=== PATIENT | female | born 1990 | race Caucasian/White ===

== ENCOUNTER 2018-07-28 18:13 | Emergency (ER) | payer MEDICAID, SELFPAY ==
[2018-07-28 18:16] VITALS: BP 140/70; PULSE 90; RESP 16; TEMP 36.8; O2SAT 98
[2018-07-28] MEDS: Ketorolac 15 MG/ML VIAL IM (18:31)
--- NOTE | 2018-07-28 18:35 | W.ED.GENAD ---
Discharge Plan Disposition Patient Disposition: STILL A PATIENT Condition: Stable Discharge Details Chief Complaint: Urinary Clinical Impression: Left flank pain Reason For Visit: left flank pain Primary Care Provider: Evelyn Duran ED Provider: Dylan Echols Home Meds and New Rx's Prescriptions: Continue etonogestrel-ethinyl estradiol [NuvaRing] 1 EACH ring 1 ea VG q month Qty: 3 RF: 0 ibuprofen 600 MG tablet 600 mg PO Q6H PRN (Reason: Pain) Qty: 16 RF: 0 Discharge Instructions Instructions: Flank Pain (ED) Additional Instructions: if pain continues in 1-2 weeks see your primary care provider If you have severe worsening of pain, fevers, or persistent vomit return to the emergency department Medical Decision Making <Indra Severino MD - Last Filed: 07/28/18 20:23> [facility] Narrative Medical decision making narrative: 28 yo female who denies chronic medical problems though has hx of kidney stones, comes in with intermittent left flank pain for 2 weeks and urinary frequency. Has not had vomit, vaginal bleeding or d/c, no abdominal tenderness on exam. I suspect the patient likely has uti vs pyelo vs kidney stone. Will start with UA as patient appears well and is tolerating PO and pain is well controlled with ibuprofen, after discussion about risks/benefits of CT imaging to eval for kidney stones she declines to have this at this time. No abdominal tenderness to suggest entities such as appendicitis vs sbo or other surgical pathology. No pelvic pain to suggest ovairan torsion UA unremarkable, pt still has mild oblique pain. The patient requests CT despite my feeling she unlikely has acute pathology based on her exam and it is likely oblique or back strain but she still wants to have a CT despite radiation risks being explsined, will order this pt's ct on my read shows no acute findings, she is rseting in bed with no significant pain. Will sign pt out to Dr. echols pending results of the CT. Differential Diagnosis kidney stone, pyelo, muscle strain <Dylan Echols DO - Last Filed: 07/28/18 20:51> [facility] Narrative Medical decision making narrative: Patient CT scan results demonstrates no acute process per virtual radiology. No evidence of urolithiasis in the ureter or bladder. She does have a small punctate lesion in the kidney. Her pain is well controlled. Urine is negative. Vital signs are stable. She will be discharged home. Red flags for which to return have been discussed and the patient understands. I have extensively reviewed the treatment plan and discharge instructions with the patient. I have addressed all patient concerns at this time. The patient was made aware of what symptoms to monitor for that would warrant a return to the emergency department. Discussed the plan with the patient, they demonstrate verbal understanding and agreement with our assessment and plan at this time. HPI - General Adult <Indra Severino MD - Last Filed: 07/28/18 20:23> General Mode of arrival: ambulatory. Date/Time Provider Initiated Documentation: 07/28/18 18:23. Limitations to Documentation: no limitations. Information obtained by: patient. History of Present Illness 28 year old F presents to the emergency department with the chief complaint of left flank pain, described as moderate, with intensity rated at 4. Quality is described as stabbing, and is localized to the back. Patient reports no radiation. Patient started experiencing this week(s) (2) and it has been intermittent. No relieving factors improve symptom(s), No exacerbating factors reported . Patient notes other (urinary frequency). Patient did receive the following treatments prior to arrival, NSAID Related Data Previous Rx's Medication Instructions Recorded ibuprofen 600 mg PO Q6H PRN #16 tablet 10/07/17 Allergies Allergy/AdvReac Type Severity Reaction Status Date / Time No Known Drug Allergies Allergy Unverified 07/28/18 18:20 General Stated Complaint: Urinary HAM: 3 Review of Systems <Indra Severino MD - Last Filed: 07/28/18 20:23> Review of Systems All systems reviewed & are unremarkable except as noted in HPI and below Constitutional Denies chills, Denies fever(s) and Denies weakness Eyes Patient Denies loss of vision ENT Denies change in voice Cardiovascular Denies chest pain and Denies dyspnea Respiratory Denies dyspnea Gastrointestinal Denies abdominal pain, Denies nausea and Denies vomiting Genitourinary Reports urinary frequency and Denies dysuria Musculoskeletal Denies joint swelling Integumentary/Breasts Denies rash Neurologic Denies loss of vision and Denies weakness Psychiatric Denies depression Endocrine Denies cold intolerance and Denies heat intolerance Allergic/Immunologic Reports urticaria Exam <Indra Severino MD - Last Filed: 07/28/18 20:23> Const General: no acute distress Orientation: alert [facility] Head: normal to inspection Ears: external ears normal General nose exam: external nose normal Mouth: moist mucous membranes Eyes General: appearance normal, both eyes and all related structures Neck Neck: normal visual inspection Resp Effort & Inspection: normal respiratory effort and able to speak in complete sentences Cardio Rate: regular rate GI Palpation: soft and nontender Back/Spine/Pelvis Back: CVA tenderness (left cva tenderness) Skin General skin exam: no rashes or lesions noted Neuro General: alert and oriented x3 Extrem General: normal to inspection Psych Mental Status: mental status grossly normal Course <Indra Severino MD - Last Filed: 07/28/18 20:23> Vital Signs Temperature 36.8 C 07/28/18 18:16 Pulse 90 07/28/18 18:16 Respiratory Rate 16 07/28/18 18:16 Blood Pressure 140/70 07/28/18 18:16 Pulse Oximetry 98 07/28/18 18:16 Temperature 36.8 C 07/28/18 18:16 Pulse 90 07/28/18 18:16 Respiratory Rate 16 07/28/18 18:16 Blood Pressure 140/70 07/28/18 18:16 Pulse Oximetry 98 07/28/18 18:16 Sign Out <Indra Severino MD - Last Filed: 07/28/18 20:23> Sign Out Data: Sign Out Comment: follow up on ct results, if no acute findings can be d/c'd Last updated by Indra Severino MD at 07/28/18 20:17
--- NOTE | 2018-07-28 18:39 | ED.GENADUL_ITS ---
Discharge Plan Disposition Patient Disposition: STILL A PATIENT Condition: Stable Discharge Details Chief Complaint: Urinary Clinical Impression: Left flank pain Reason For Visit: left flank pain Primary Care Provider: Evelyn Duran ED Provider: Dylan Echols Home Meds and New Rx's Prescriptions: Continue etonogestrel-ethinyl estradiol [NuvaRing] 1 EACH ring 1 ea VG q month Qty: 3 RF: 0 ibuprofen 600 MG tablet 600 mg PO Q6H PRN (Reason: Pain) Qty: 16 RF: 0 Discharge Instructions Instructions: Flank Pain (ED) Additional Instructions: if pain continues in 1-2 weeks see your primary care provider If you have severe worsening of pain, fevers, or persistent vomit return to the emergency department Medical Decision Making <Indra Severino MD - Last Filed: 07/28/18 20:23> [facility] Narrative Medical decision making narrative: 28 yo female who denies chronic medical problems though has hx of kidney stones, comes in with intermittent left flank pain for 2 weeks and urinary frequency. Has not had vomit, vaginal bleeding or d /c, no abdominal tenderness on exam. I suspect the patient likely has uti vs pyelo vs kidney stone. Will start with UA as patient appears well and is tolerating PO and pain is well controlled with ibuprofen, after discussion about risks/benefits of CT imaging to eval for kidney stones she declines to have this at this time. No abdominal tenderness to suggest entities such as appendicitis vs sbo or other surgical pathology. No pelvic pain to suggest ovairan torsion UA unremarkable, pt still has mild oblique pain. The patient requests CT despite my feeling she unlikely has acute pathology based on her exam and it is likely oblique or back strain but she still wants to have a CT despite radiation risks being explsined, will order this pt's ct on my read shows no acute findings, she is rseting in bed with no significant pain. Will sign pt out to Dr. echols pending results of the CT. Differential Diagnosis kidney stone, pyelo, muscle strain <Dylan Echols DO - Last Filed: 07/28/18 20:51> [facility] Narrative Medical decision making narrative: Patient CT scan results demonstrates no acute process per virtual radiology. No evidence of urolithiasis in the ureter or bladder. She does have a small punctate lesion in the kidney. Her pain is well controlled. Urine is negative. Vital signs are stable. She will be discharged home. Red flags for which to return have been discussed and the patient understands. I have extensively reviewed the treatment plan and discharge instructions with the patient. I have addressed all patient concerns at this time. The patient was made aware of what symptoms to monitor for that would warrant a return to the emergency department. Discussed the plan with the patient, they demonstrate verbal understanding and agreement with our assessment and plan at this time. HPI - General Adult <Indra Severino MD - Last Filed: 07/28/18 20:23> General Mode of arrival: ambulatory . Date/Time Provider Initiated Documentation: 07/28/18 18:23 . Limitations to Documentation: no limitations . Information obtained by: patient . History of Present Illness 28 year old F presents to the emergency department with the chief complaint of left flank pain, described as moderate, with intensity rated at 4. Quality is described as stabbing, and is localized to the back. Patient reports no radiation. Patient started experiencing this week(s) (2) and it has been intermittent. No relieving factors improve symptom(s), No exacerbating factors reported . Patient notes other (urinary frequency). Patient did receive the following treatments prior to arrival, NSAID Related Data Previous Rx's Medication Instructions Recorded ibuprofen 600 mg PO Q6H PRN #16 tablet 10/07/17 Allergies Allergy/AdvReac Type Severity Reaction Status Date / Time No Known Drug Allergies Allergy Unverified 07/28/18 18:20 General Stated Complaint: Urinary HAM: 3 Review of Systems <Indra Severino MD - Last Filed: 07/28/18 20:23> Review of Systems All systems reviewed & are unremarkable except as noted in HPI and below Constitutional Denies chills, Denies fever(s) and Denies weakness Eyes Patient Denies loss of vision ENT Denies change in voice Cardiovascular Denies chest pain and Denies dyspnea Respiratory Denies dyspnea Gastrointestinal Denies abdominal pain, Denies nausea and Denies vomiting Genitourinary Reports urinary frequency and Denies dysuria Musculoskeletal Denies joint swelling Integumentary/Breasts Denies rash Neurologic Denies loss of vision and Denies weakness Psychiatric Denies depression Endocrine Denies cold intolerance and Denies heat intolerance Allergic/Immunologic Reports urticaria Exam <Indra Severino MD - Last Filed: 07/28/18 20:23> Const General: no acute distress Orientation: alert [facility] Head: normal to inspection Ears: external ears normal General nose exam: external nose normal Mouth: moist mucous membranes Eyes General: appearance normal, both eyes and all related structures Neck Neck: normal visual inspection Resp Effort & Inspection: normal respiratory effort and able to speak in complete sentences Cardio Rate: regular rate GI Palpation: soft and nontender Back/Spine/Pelvis Back: CVA tenderness (left cva tenderness) Skin General skin exam: no rashes or lesions noted Neuro General: alert and oriented x3 Extrem General: normal to inspection Psych Mental Status: mental status grossly normal Course <Indra Severino MD - Last Filed: 07/28/18 20:23> Vital Signs Temperature 36.8 C 07/28/18 18:16 Pulse 90 07/28/18 18:16 Respiratory Rate 16 07/28/18 18:16 Blood Pressure 140/70 07/28/18 18:16 Pulse Oximetry 98 07/28/18 18:16 Temperature 36.8 C 07/28/18 18:16 Pulse 90 07/28/18 18:16 Respiratory Rate 16 07/28/18 18:16 Blood Pressure 140/70 07/28/18 18:16 Pulse Oximetry 98 07/28/18 18:16 Sign Out <Indra Severino MD - Last Filed: 07/28/18 20:23> Sign Out Data: Sign Out Comment: follow up on ct results, if no acute findings can be d/c'd Last updated by Indra Severino MD at 07/28/18 20:17
[2018-07-28 19:08] LABS: Bilirubin Negative (Negative); Blood Negative (Negative); Clarity Clear; Glucose Negative (Negative); Ketones Negative (Negative); Leukocyte Esterase Negative (Negative); Nitrite Negative (Negative); Specific Gravity >= 1.030 (1.005-1.025); Urobilinogen 0.2 EU/dL (Up TO 0.2); pH 5.5 (5-8)
--- NOTE | 2018-07-28 19:37 | DI.CT_ITS ---
SYMPTOM/DIAGNOSIS: LEFT FLANK PAIN RENAL COLIC CT: Comparison is made with 07 Oct 2017. A tiny nonobstructing stone is seen in the mid to lower left kidney, unchanged from the previous exam. There is no evidence of hydronephrosis of either kidney The bladder, uterus and ovaries are unremarkable. The visualized portions of the liver and spleen appear normal. The gallbladder, pancreas, adrenals and bowel are unremarkable. The appendix appears normal. No bony abnormalities are seen. IMPRESSION: Tiny nonobstructing stone in the mid to lower pole of the left kidney, unchanged.
--- NOTE | 2018-07-28 20:28 | DI.VRAD_ITS ---
EXAM: CT Abdomen and Pelvis Without Intravenous Contrast CLINICAL HISTORY: 28 years old, female; Pain; Abdominal pain; Flank; Left; Patient HX: Left flank pain TECHNIQUE: Axial computed tomography images of the abdomen and pelvis without intravenous contrast. Coronal and sagittal reformatted images were created and reviewed. COMPARISON: CT - RENAL COLIC WO CONTRAST 10/07/2017 9:30 PM FINDINGS: Lung bases: Minimal dependent subsegmental atelectasis. ABDOMEN: Liver: The visualized liver is unremarkable. Gallbladder and bile ducts: No focal pathology. No calcified stones. No ductal dilation. Pancreas: No focal pathology. No ductal dilation. Spleen: Visualized portions of the spleen are unremarkable. Adrenals: No focal pathology. No mass. Kidneys and ureters: Punctate nonobstructive left nephrolithiasis. No right nephrolithiasis or hydronephrosis. Stomach and bowel: Several tiny transverse colonic diverticulum. No focal pathology in the remainder of the colon. No focal pathology in the small bowel. No obstruction. No mucosal thickening. PELVIS: Appendix: No findings to suggest acute appendicitis. Bladder: No focal pathology. No stones. Reproductive: Normal CT appearance of the uterus. ABDOMEN and PELVIS: Intraperitoneal space: No free air. No significant fluid collection. Bones/joints: No acute fracture. No dislocation. Soft tissues: Unremarkable. Vasculature: Subcentimeter rounded calcification in the left pelvis most consistent with a phlebolith. No abdominal aortic aneurysm. Lymph nodes: No enlarged lymph nodes. Tubes, lines and devices: Rounded structure in the vagina most likely a contraceptive device. IMPRESSION: 1. No acute findings. 2. Punctate nonobstructive left nephrolithiasis. 3. Minor incidental findings as described. Dictated and Authenticated by: Asya Barton MD. Ordering:MICHELLE HAJI MD
[2018-07-28 20:34] VITALS: BP 126/73; PULSE 61; RESP 16; O2SAT 99
== END 2018-07-28 20:43 | disposition still patient (30) ==
PROVIDERS: Emergency Medicine; Emergency Provider Student in an Organized Health Care Education/Training Program; PCP Nurse Practitioner Family
DX: R10.12 Left upper quadrant pain (principal); Z87.442 Personal history of urinary calculi
CPT/HCPCS: 81025; 96372; 99284; 74176; 81003; 99285; J1885

== ENCOUNTER 2018-11-25 11:01 | Outpatient (REF) | payer MEDICAID, SELFPAY ==
--- NOTE | 2018-11-25 10:00 | PAPFT_PTH ---
PATIENT: More Gu LOC: [facility] U#:[id number] AGE/SX: 28/F ROOM: RE11/25/[address]: DOMENIC Prieto : 1990 BED: DIS: 11/25/2018 SPEC #: [id number] RECD: 11/25/18 13:05 STATUS: DENISE RECorrina #: [id number] LUCERO: 11/25/18 10:[address]: Aide Evans DEPT: [facility] Cytology RECD BY: Tila Manriquez ENTERED: 11/25/18 13:06 SP TYPE: PAPFT OTHR DR: Evelyn Duran Tissues: 1 - CX/ENDOCX FOR PAP SMEARS Procedures: PAP THIN PREP/UVM Screening Comments: [id number]
== END 2018-11-25 11:21 ==
LOC: LBN 11:01
PROVIDERS: PCP Nurse Practitioner Family; Visit Provider Nurse Practitioner Family
DX: Z12.4 Encounter for screening for malignant neoplasm of cervix (principal)
CPT/HCPCS: 88142

== ENCOUNTER 2019-01-20 13:44 | Emergency (ER) | payer MEDICAID, SELFPAY ==
[2019-01-20 14:03] VITALS: BP 136/80; PULSE 102; RESP 16; TEMP 36.6; O2SAT 97
--- NOTE | 2019-01-20 15:27 | W.ED.GENAD ---
Discharge Plan Disposition Patient Disposition: HOME Condition: Stable Discharge Details Chief Complaint: RespSymp Clinical Impression: Influenza Primary Care Provider: None,None ED Provider: Obie Noriega Home Meds and New Rx's Prescriptions: New benzonatate 200 mg capsule 200 mg PO TID PRN (Reason: cough) Qty: 30 RF: 0 Continued NuvaRing 0.12-0.015 mg/24 hr ring 1 vag ring VG q month Qty: 3 RF: 3 ibuprofen 600 MG tablet 600 mg PO Q6H PRN (Reason: Pain) Qty: 16 RF: 0 Discharge Instructions Instructions: Influenza (ED) Additional Instructions: Please stay well-hydrated and get plenty of rest during illness. Feel free to follow-up with your primary care provider if not improving over the next week. You may take [id number] cough and cold medication as directed on packaging. Return to the emergency department for any significant worsening of symptoms or further concerns she may have Stand Alone Forms: Work Release Referrals: Primary Care Provider [Outside] (As needed for reassessment) Discharge Data Discharge Date/Time-TO BE ENTERED AT DEPARTURE: 01/20/19 15:32 Medical Decision Making Patient presenting to the emergency department for flulike symptoms. Patient states that this started greater than 48 hours ago. Patient has taken some [id number] medications with mild to moderate relief of symptoms. Patient is afebrile nontoxic in appearance with mild tachycardia on vital signs but none auscultated on cardiac exam. Exam does show some mild posterior pharynx erythema and nasal congestion otherwise unremarkable symptoms. Given symptoms greater than 48 hours patient was offered influenza testing which she declined at this time. Patient was checked for due to irregular menses and was negative. There were no signs of pneumonia, meningitis, or life-threatening illness. Patient was diagnosed with presumed influenza. Patient was encouraged to continue to stay well-hydrated and given Tessalon Perle for cough suppressant. Return precautions discussed. After discussion of diagnosis and plan of care patient has no further needs, questions, or concerns and states clear understanding to return to the emergency department for any worsening symptoms. HPI General Mode of arrival: ambulatory. Date/Time Provider Initiated Documentation: 01/20/19 14:00. Limitations to Documentation: no limitations. Information obtained by: patient and RN notes reviewed. History of Present Illness 28 year old F presents to the emergency department with the chief complaint of flu like symptoms, described as moderate, with intensity rated at 7. Quality is described as aching, and is localized to the chest (tightness). Patient started experiencing this day(s) (2) and it has been constant. No relieving factors improve symptom(s), No exacerbating factors reported . Patient did receive the following treatments prior to arrival, NSAID and other (OTC cold meds) Related Data Home Medications Medication Instructions Recorded Confirmed ibuprofen 600 mg PO Q6H PRN #16 tab 10/07/17 01/20/19 etonogestrel-ethinyl estradiol 1 vag ring VG q month #3 each 11/25/18 01/20/19 0.12 mg -0.015 mg/24 hr vaginal ring benzonatate 200 mg PO TID PRN #30 cap 01/20/19 Previous Rx's Medication Instructions Recorded ibuprofen 600 mg PO Q6H PRN #16 tab 10/07/17 etonogestrel-ethinyl estradiol 1 vag ring VG q month #3 each 11/25/18 0.12 mg -0.015 mg/24 hr vaginal ring benzonatate 200 mg PO TID PRN #30 cap 01/20/19 Allergies Allergy/AdvReac Type Severity Reaction Status Date / Time No Known Drug Allergies Allergy Verified 01/20/19 14:07 General Stated Complaint: RespSymp HAM: 3 Review of Systems Constitutional Reports body ache(s), Reports chills, Reports fever(s), Reports headache(s) and Reports malaise Eyes Denies eye discharge ENT Reports as per HPI, Denies ear discharge, Denies otalgia, Reports headache(s), Reports nasal congestion, Reports nasal discharge, Denies neck pain, Reports sore throat and Denies throat swelling Cardiovascular Denies chest pain and Denies dyspnea Respiratory Reports cough and Denies dyspnea Musculoskeletal Denies joint swelling and Denies neck pain Integumentary/Breasts Denies rash Neurologic Reports headache(s) Allergic/Immunologic Denies throat swelling [facility] Medical History Contraception (Acute) Depression with anxiety (Acute) Smoker (Acute 05/28/14) Irregular bleeding (Resolved) Kidney stones (Resolved 11/04/15) Surgical History Ureteroscopy, EHL, or Laser Lithotripsy stent placement left kidney and ureter Family History Mother Alcohol abuse Father Substance abuse Alcohol abuse Brother No problems noted. Brother No problems noted. Brother No problems noted. Grandfather No problems noted. Grandfather No problems noted. Grandmother Diabetes Alcohol abuse Essential hypertension Heart disease Hyperlipidemia Mental disorder Myocardial infarction Grandmother Kidney stones Cholestasis Son No problems noted. 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 Smoking and Tabacco status: Current every day Female Reproductive History Menstrual control method: vaginal ring History History 2 Para 2 Hx # Term Pregnancies Multiple births Hx # Pregnancies Ectopic pregnancies AB induced Hx Number of Living Children AB spontaneous Exam Const General: cooperative, comfortable, no acute distress and not ill appearing Orientation: alert and awake HENMT Head: normal to inspection, normocephalic and atraumatic Ears: hearing grossly normal bilaterally and TM's normal bilaterally General nose exam: external nose normal and other (nasal congestion heard) Face and sinus: normal facial exam, sinuses nontender and no erythema Mouth: oral mucosae normal, no drooling, no muffled voice and no trismus Throat: tonsils normal, uvula midline and posterior oropharynx abnormal erythema (mild) Neck Neck: normal visual inspection, full ROM, no lymphadenopathy, no meningeal signs, trachea midline and supple Resp Effort & Inspection: normal respiratory effort, able to speak in complete sentences and cough Quality of cough: dry Auscultation: clear to auscultation bilaterally Cardio Rate: regular rate Rhythm: regular rhythm Heart Sounds: S1 normal, S2 normal, normal S1 and S2, no click, no gallops, no murmurs and no rubs Skin General skin exam: no rashes or lesions noted and dry skin (warm) Course Vital Signs Temperature 36.6 C 01/20/19 14:03 Pulse 102 H 01/20/19 14:03 Respiratory Rate 16 01/20/19 14:03 Blood Pressure 136/80 01/20/19 14:03 Pulse Oximetry 97 01/20/19 14:03 Temperature 36.6 C 01/20/19 14:03 Temperature Source Skin 01/20/19 14:03 Pulse 102 H 01/20/19 14:03 Respiratory Rate 16 01/20/19 14:03 Respiratory Effort Non-Labored 01/20/19 14:23 Respiratory Depth Normal 01/20/19 14:23 Blood Pressure 136/80 01/20/19 14:03 Blood Pressure Position Sitting 01/20/19 14:03 Pulse Oximetry 97 01/20/19 14:03 Oxygen Delivery Method Room Air 01/20/19 14:03 Oxygen Flow Rate 0 01/20/19 14:03 Pain Level 7 01/20/19 14:03 Lab/Test Results Lab/Test Results: POC- Test(urine) Negative
== END 2019-01-20 15:32 | disposition home or self-care (01) ==
PROVIDERS: Emergency Provider Nurse Practitioner Family
DX: J10.1 Influenza due to other identified influenza virus with other respiratory manifestations (principal); F17.210 Nicotine dependence, cigarettes, uncomplicated
CPT/HCPCS: 99283

== ENCOUNTER 2019-03-14 21:50 | Emergency (ER) | payer MEDICAID, SELFPAY ==
--- NOTE | 2019-03-14 21:55 | W.ED.GENAD ---
Discharge Plan Disposition Patient Disposition: HOME Condition: Stable Discharge Details Chief Complaint: RespSymp Clinical Impression: Laryngitis Primary Care Provider: Pilar Weeks ED Provider: Indra Severino Home Meds and New Rx's Prescriptions: No Action NuvaRing 0.12-0.015 mg/24 hr ring 1 vag ring VG q month Qty: 3 RF: 3 ibuprofen 600 MG tablet 600 mg PO Q6H PRN (Reason: Pain) Qty: 16 RF: 0 benzonatate 200 mg capsule 200 mg PO TID PRN (Reason: cough) Qty: 30 RF: 0 Discharge Instructions Instructions: Laryngitis (ED) Additional Instructions: Rest your voice: Do not shout or scream if you get laryngitis often. This will help prevent swelling and irritation of your larynx.Avoid irritants and harmful substances: Do not breathe in chemicals or allergens, such as pollen. Alcohol and tobacco can also irritate your larynx.Avoid foods and liquids that can cause acid reflux: These may include carbonated drinks, spicy foods and sauces, citrus fruit, peppermint, and chocolate. if symptoms continue next week see your primary care provider if you have severe worsening pain or inability to swallow liquids or difficulty breathing return to the emergency department Medical Decision Making Pt has had a hoarse voice for 3 days and dry cough. No fevers, difficulty swallowing or difficulty breathing. On exam she is in no distress laughing with a friend. Does have a hoarse voice with mild posterior pharynx erythema, midline uvula, no pain over hyoid or restricted neck movements, no findings to suggest rpa, [employer], epiglotitis. Suspect laryngitis but will eval for strep, if negative will have her do supportive therapy and f/u with pcp with return precautions Differential Diagnosis pharyngitis, laryngitis HPI General Mode of arrival: ambulatory. Date/Time Provider Initiated Documentation: 03/14/19 21:54. Limitations to Documentation: no limitations. Information obtained by: patient. History of Present Illness 29 year old F presents to the emergency department with the chief complaint of hoarse voice, described as moderate, Quality is described as other (scratchy), and is localized to the mouth. Patient started experiencing this day(s) (3) and it has been constant. No relieving factors improve symptom(s), No exacerbating factors reported . Patient notes no other symptoms.. Patient did receive the following treatments prior to arrival, none Related Data Home Medications Medication Instructions Recorded Confirmed ibuprofen 600 mg PO Q6H PRN #16 tab 10/07/17 03/14/19 etonogestrel-ethinyl estradiol 1 vag ring VG q month #3 each 11/25/18 03/14/19 0.12 mg -0.015 mg/24 hr vaginal ring benzonatate 200 mg PO TID PRN #30 cap 01/20/19 03/14/19 Previous Rx's Medication Instructions Recorded ibuprofen 600 mg PO Q6H PRN #16 tab 10/07/17 etonogestrel-ethinyl estradiol 1 vag ring VG q month #3 each 11/25/18 0.12 mg -0.015 mg/24 hr vaginal ring benzonatate 200 mg PO TID PRN #30 cap 01/20/19 Allergies Allergy/AdvReac Type Severity Reaction Status Date / Time No Known Drug Allergies Allergy Verified 03/14/19 22:00 General HAM: 3 Review of Systems Review of Systems All systems reviewed & are unremarkable except as noted in HPI and below Constitutional Denies chills, Denies fever(s) and Denies weakness Cardiovascular Denies chest pain and Denies dyspnea Respiratory Denies dyspnea Gastrointestinal Denies abdominal pain, Denies nausea and Denies vomiting Genitourinary Denies dysuria Musculoskeletal Denies joint swelling Integumentary/Breasts Denies rash Neurologic Denies weakness [facility] Medical History Contraception (Acute) Depression with anxiety (Acute) Smoker (Acute 05/28/14) Irregular bleeding (Resolved) Kidney stones (Resolved 11/04/15) Surgical History Ureteroscopy, EHL, or Laser Lithotripsy stent placement left kidney and ureter Family History Mother Alcohol abuse Father Substance abuse Alcohol abuse Brother No problems noted. Brother No problems noted. Brother No problems noted. Grandfather No problems noted. Grandfather No problems noted. Grandmother Diabetes Alcohol abuse Essential hypertension Heart disease Hyperlipidemia Mental disorder Myocardial infarction Grandmother Kidney stones Cholestasis Son No problems noted. 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 Do you feel safe at home: Yes Do you feel safe in your relationship?: Yes Female Reproductive History Menstrual control method: vaginal ring History History 2 Para 2 Hx # Term Pregnancies Multiple births Hx # Pregnancies Ectopic pregnancies AB induced Hx Number of Living Children AB spontaneous Exam Const General: no acute distress Orientation: alert HENMT Head: normal to inspection Ears: external ears normal General nose exam: external nose normal Mouth: moist mucous membranes Eyes General: appearance normal, both eyes and all related structures Neck Neck: normal visual inspection Resp Effort & Inspection: normal respiratory effort and able to speak in complete sentences Cardio Rate: regular rate Skin General skin exam: no rashes or lesions noted Neuro General: alert and oriented x3 Extrem General: normal to inspection Psych Mental Status: mental status grossly normal
[2019-03-14 21:56] VITALS: BP 125/65; PULSE 89; RESP 20; TEMP 37.1; O2SAT 99
--- NOTE | 2019-03-14 22:08 | ED.GENADUL_ITS ---
Discharge Plan Disposition Patient Disposition: HOME Condition: Stable Discharge Details Chief Complaint: RespSymp Clinical Impression: Laryngitis Primary Care Provider: Pilar Weeks ED Provider: Indra Severino Home Meds and New Rx's Prescriptions: No Action NuvaRing 0.12-0.015 mg/24 hr ring 1 vag ring VG q month Qty: 3 RF: 3 ibuprofen 600 MG tablet 600 mg PO Q6H PRN (Reason: Pain) Qty: 16 RF: 0 benzonatate 200 mg capsule 200 mg PO TID PRN (Reason: cough) Qty: 30 RF: 0 Discharge Instructions Instructions: Laryngitis (ED) Additional Instructions: Rest your voice: Do not shout or scream if you get laryngitis often. This will help prevent swelling and irritation of your larynx.Avoid irritants and harmful substances: Do not breathe in chemicals or allergens, such as pollen. Alcohol and tobacco can also irritate your larynx.Avoid foods and liquids that can cause acid reflux: These may include carbonated drinks, spicy foods and sauces, citrus fruit, peppermint, and chocolate. if symptoms continue next week see your primary care provider if you have severe worsening pain or inability to swallow liquids or difficulty breathing return to the emergency department Medical Decision Making Pt has had a hoarse voice for 3 days and dry cough. No fevers, difficulty swallowing or difficulty breathing. On exam she is in no distress laughing with a friend. Does have a hoarse voice with mild posterior pharynx erythema, midline uvula, no pain over hyoid or restricted neck movements, no findings to suggest rpa, vessel captain, epiglotitis. Suspect laryngitis but will eval for strep, if negative will have her do supportive therapy and f/u with pcp with return precautions Differential Diagnosis pharyngitis, laryngitis HPI General Mode of arrival: ambulatory . Date/Time Provider Initiated Documentation: 03/14/19 21:54 . Limitations to Documentation: no limitations . Information obtained by: patient . History of Present Illness 29 year old F presents to the emergency department with the chief complaint of hoarse voice, described as moderate, Quality is described as other (scratchy), and is localized to the mouth. Patient started experiencing this day(s) (3) and it has been constant. No relieving factors improve symptom(s), No exacerbating factors reported . Patient notes no other symptoms.. Patient did receive the following treatments prior to arrival, none Related Data Home Medications Medication Instructions Recorded Confirmed ibuprofen 600 mg PO Q6H PRN #16 tab 10/07/17 03/14/19 etonogestrel-ethinyl estradiol 1 vag ring VG q month #3 each 11/25/18 03/14/19 0.12 mg -0.015 mg/24 hr vaginal ring benzonatate 200 mg PO TID PRN #30 cap 01/20/19 03/14/19 Previous Rx's Medication Instructions Recorded ibuprofen 600 mg PO Q6H PRN #16 tab 10/07/17 etonogestrel-ethinyl estradiol 1 vag ring VG q month #3 each 11/25/18 0.12 mg -0.015 mg/24 hr vaginal ring benzonatate 200 mg PO TID PRN #30 cap 01/20/19 Allergies Allergy/AdvReac Type Severity Reaction Status Date / Time No Known Drug Allergies Allergy Verified 03/14/19 22:00 General HAM: 3 Review of Systems Review of Systems All systems reviewed & are unremarkable except as noted in HPI and below Constitutional Denies chills, Denies fever(s) and Denies weakness Cardiovascular Denies chest pain and Denies dyspnea Respiratory Denies dyspnea Gastrointestinal Denies abdominal pain, Denies nausea and Denies vomiting Genitourinary Denies dysuria Musculoskeletal Denies joint swelling Integumentary/Breasts Denies rash Neurologic Denies weakness [facility] Medical History Contraception (Acute) Depression with anxiety (Acute) Smoker (Acute 05/28/14) Irregular bleeding (Resolved) Kidney stones (Resolved 11/04/15) Surgical History Ureteroscopy, EHL, or Laser Lithotripsy stent placement left kidney and ureter Family History Mother Alcohol abuse Father Substance abuse Alcohol abuse Brother No problems noted. Brother No problems noted. Brother No problems noted. Grandfather No problems noted. Grandfather No problems noted. Grandmother Diabetes Alcohol abuse Essential hypertension Heart disease Hyperlipidemia Mental disorder Myocardial infarction Grandmother Kidney stones Cholestasis Son No problems noted. 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 Do you feel safe at home: Yes Do you feel safe in your relationship?: Yes Female Reproductive History Menstrual control method: vaginal ring History History 2 Para 2 Hx # Term Pregnancies Multiple births Hx # Pregnancies Ectopic pregnancies AB induced Hx Number of Living Children AB spontaneous Exam Const General: no acute distress Orientation: alert HENMT Head: normal to inspection Ears: external ears normal General nose exam: external nose normal Mouth: moist mucous membranes Eyes General: appearance normal, both eyes and all related structures Neck Neck: normal visual inspection Resp Effort & Inspection: normal respiratory effort and able to speak in complete sentences Cardio Rate: regular rate Skin General skin exam: no rashes or lesions noted Neuro General: alert and oriented x3 Extrem General: normal to inspection Psych Mental Status: mental status grossly normal
[2019-03-14 22:31] VITALS: BP 125/65; PULSE 80; RESP 18; O2SAT 99
== END 2019-03-14 22:34 | disposition home or self-care (01) ==
PROVIDERS: Emergency Provider Emergency Medicine; PCP Family Medicine
DX: J04.0 Acute laryngitis (principal)
CPT/HCPCS: 87880; 99282; 87081

== ENCOUNTER 2019-05-22 11:26 | Emergency (ER) | payer MEDICAID, SELFPAY ==
[2019-05-22 11:40] VITALS: BP 122/67; PULSE 72; RESP 16; TEMP 36.5; O2SAT 100
--- NOTE | 2019-05-22 13:00 | W.ED.GENAD ---
Discharge Plan Disposition Patient Disposition: HOME Condition: Good Discharge Details Chief Complaint: EyeProblem Clinical Impression: Conjunctivitis Primary Care Provider: Pilar Weeks ED Provider: Lily Stanton Home Meds and New Rx's Prescriptions: Continued NuvaRing 0.12-0.015 mg/24 hr ring 1 vag ring VG q month Qty: 3 RF: 3 Discharge Instructions Instructions: Conjunctivitis (ED) Additional Instructions: At this point, your symptoms are most likely allergic in nature. Please try Clear Eyes redness relief, take as directed on the bottle. If you develop pain, change in your vision, redness, discharge or other new/worsening symptoms please seek care urgently once again. Please follow-up with primary care next week if not improving Referrals: Pilar Weeks MD [Primary Care Provider] - Discharge Data Discharge Date/Time-TO BE ENTERED AT DEPARTURE: 05/22/19 13:14 Medical Decision Making Patient a 21-year-old female presents today with chief complaint of right eye irritation. She reports she went camping last night and woke this morning with swelling under the right lid. Notes the eye to be slightly injected very itchy. She denies any pain, change in vision, discharge, fever/chills. No sensation of foreign body, no trauma to the eye. On exam, patient is slightly teary to the side. Mild injection of the conjunctiva. She does have some lower lid swelling but no erythema warmth or tenderness to palpation. No evidence of abscess or periorbital cellulitis. Patient I discussed the differential diagnoses, at this time, I feel that this is likely allergic in nature. She does report that she has a large number of seasonal allergies. We did discuss [id number] medications that may help with symptomatic management. She is given strict return precautions. Advise follow-up with primary care this week if not improving. All of her questions and concerns were addressed and she is in agreement this plan. HPI General Mode of arrival: ambulatory. Date/Time Provider Initiated Documentation: 05/22/19 12:58. Limitations to Documentation: no limitations. Information obtained by: patient and RN notes reviewed. History of Present Illness 29 year old F presents to the emergency department with the chief complaint of right eye irritation, described as mild, with intensity rated at 2. Quality is described as other (itching), Patient reports no radiation. Patient started experiencing this hour(s) and it has been constant. No relieving factors improve symptom(s), No exacerbating factors reported . Patient notes no other symptoms.. Patient did receive the following treatments prior to arrival, none Related Data Home Medications Medication Instructions Recorded Confirmed etonogestrel-ethinyl estradiol 1 vag ring VG q month #3 each 11/25/18 05/22/19 0.12 mg -0.015 mg/24 hr vaginal ring Previous Rx's Medication Instructions Recorded etonogestrel-ethinyl estradiol 1 vag ring VG q month #3 each 11/25/18 0.12 mg -0.015 mg/24 hr vaginal ring Allergies Allergy/AdvReac Type Severity Reaction Status Date / Time No Known Drug Allergies Allergy Verified 05/22/19 11:45 General Stated Complaint: EyeProblem HAM: 4 Review of Systems Constitutional Reports as per HPI, Denies chills, Denies fever(s), Denies headache(s), Denies lethargy and Denies poor appetite Eyes Reports as per HPI, Denies blurry vision, Denies change in vision, Reports eye discharge (tearing), Reports irritation, Reports itchy eyes and Denies eye pain ENT Reports as per HPI and Denies headache(s) Cardiovascular Reports as per HPI, Denies chest pain and Denies dyspnea Respiratory Reports as per HPI and Denies dyspnea Gastrointestinal Reports as per HPI, Denies abdominal pain, Denies change in bowel habits, Denies nausea and Denies vomiting Integumentary/Breasts Reports as per HPI and Denies rash Neurologic Reports as per HPI and Denies headache(s) Allergic/Immunologic Reports itchy eyes COUNT INCLUDES [facility] Medical History Contraception (Acute) Depression with anxiety (Acute) Smoker (Acute 05/28/14) Irregular bleeding (Resolved) Kidney stones (Resolved 11/04/15) Surgical History Ureteroscopy, EHL, or Laser Lithotripsy stent placement left kidney and ureter Social History Smoking/Tobacco Use Status: Former Tobacco Use Alcohol Intake: never Drug use: Never 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 Do you feel safe at home: Yes Do you feel safe in your relationship?: Yes Female Reproductive History Menstrual control method: vaginal ring History History 2 Para 2 Hx # Term Pregnancies Multiple births Hx # Pregnancies Ectopic pregnancies AB induced Hx Number of Living Children AB spontaneous Exam Const General: cooperative, healthy appearing, comfortable, no acute distress, well developed and well groomed Nutritional Appearance: average body habitus and well nourished Orientation: alert and awake [facility] Head: normal to inspection, normocephalic and atraumatic Ears: hearing grossly normal bilaterally, external ears normal and TM's normal bilaterally General nose exam: external nose normal and nares normal Face and sinus: normal facial exam, sinuses nontender and face symmetric Mouth: oral mucosae normal, lip normal, tongue normal, oropharynx normal and moist mucous membranes Teeth and gingiva: dentition normal Throat: posterior oropharynx normal, tonsils normal and uvula midline Eyes Alignment and Position: alignment normal and position normal Periorbital: periorbital findings normal Eyelids: eyelids normal Conjunctivae: conjunctival abnormality left conjunctival injection Pupils: PERRL and normal by confrontation Direct ophthalmoscopy: normal light reflex Neck Neck: normal visual inspection, full ROM, no lymphadenopathy and no meningeal signs Resp Effort & Inspection: normal respiratory effort, able to speak in complete sentences and no respiratory distress Auscultation: clear to auscultation bilaterally, no rales, no rhonchi and no wheezes Cardio Rate: regular rate Rhythm: regular rhythm Heart Sounds: S1 normal and S2 normal Skin General skin exam: no rashes or lesions noted Neuro General: alert and awake Cognition: normal cognition Speech: speech normal Gait: normal gait Psych Appearance: grossly normal and well kempt Mental Status: mental status grossly normal Speech and Movement: speech and movement normal Course Vital Signs Temperature 36.5 C 05/22/19 11:40 Pulse 72 05/22/19 11:40 Respiratory Rate 16 05/22/19 11:40 Blood Pressure 122/67 05/22/19 11:40 Pulse Oximetry 100 05/22/19 11:40 Temperature 36.5 C 05/22/19 11:40 Temperature Source Temporal Artery Scan 05/22/19 11:40 Pulse 72 05/22/19 11:40 Respiratory Rate 16 05/22/19 11:40 Respiratory Effort Non-Labored 05/22/19 11:44 Blood Pressure 122/67 05/22/19 11:40 Blood Pressure Position Sitting 05/22/19 11:40 Pulse Oximetry 100 05/22/19 11:40 Oxygen Delivery Method Room Air 05/22/19 11:40 Oxygen Flow Rate 0 05/22/19 11:40 Pain Level 2 05/22/19 11:40
--- NOTE | 2019-05-22 13:10 | ED.GENADUL_ITS ---
Discharge Plan Disposition Patient Disposition: HOME Condition: Good Discharge Details Chief Complaint: EyeProblem Clinical Impression: Conjunctivitis Primary Care Provider: Pilar Weeks ED Provider: Lily Stanton Home Meds and New Rx's Prescriptions: Continued NuvaRing 0.12-0.015 mg/24 hr ring 1 vag ring VG q month Qty: 3 RF: 3 Discharge Instructions Instructions: Conjunctivitis (ED) Additional Instructions: At this point, your symptoms are most likely allergic in nature. Please try Clear Eyes redness relief, take as directed on the bottle. If you develop pain, change in your vision, redness, discharge or other new/worsening symptoms please seek care urgently once again. Please follow-up with primary care next week if not improving Referrals: Pilar Weeks MD [Primary Care Provider] - Discharge Data Discharge Date/Time-TO BE ENTERED AT DEPARTURE: 05/22/19 13:14 Medical Decision Making Patient a 21-year-old female presents today with chief complaint of right eye irritation. She reports she went camping last night and woke this morning with swelling under the right lid. Notes the eye to be slightly injected very itchy. She denies any pain, change in vision, discharge, fever/chills. No sensation of foreign body, no trauma to the eye. On exam, patient is slightly teary to the side. Mild injection of the conjunctiva. She does have some lower lid swelling but no erythema warmth or tenderness to palpation. No evidence of abscess or periorbital cellulitis. Patient I discussed the differential diagnoses, at this time, I feel that this is likely allergic in nature. She does report that she has a large number of seasonal allergies. We did discuss [id number] medications that may help with symptomatic management. She is given strict return precautions. Advise follow-up with primary care this week if not improving. All of her questions and concerns were addressed and she is in agreement this plan. HPI General Mode of arrival: ambulatory . Date/Time Provider Initiated Documentation: 05/22/19 12:58 . Limitations to Documentation: no limitations . Information obtained by: patient and RN notes reviewed . History of Present Illness 29 year old F presents to the emergency department with the chief complaint of right eye irritation, described as mild, with intensity rated at 2. Quality is described as other (itching), Patient reports no radiation. Patient started experiencing this hour(s) and it has been constant. No relieving factors improve symptom(s), No exacerbating factors reported . Patient notes no other symptoms.. Patient did receive the following treatments prior to arrival, none Related Data Home Medications Medication Instructions Recorded Confirmed etonogestrel-ethinyl estradiol 1 vag ring VG q month #3 each 11/25/18 05/22/19 0.12 mg -0.015 mg/24 hr vaginal ring Previous Rx's Medication Instructions Recorded etonogestrel-ethinyl estradiol 1 vag ring VG q month #3 each 11/25/18 0.12 mg -0.015 mg/24 hr vaginal ring Allergies Allergy/AdvReac Type Severity Reaction Status Date / Time No Known Drug Allergies Allergy Verified 05/22/19 11:45 General Stated Complaint: EyeProblem HAM: 4 Review of Systems Constitutional Reports as per HPI, Denies chills, Denies fever(s), Denies headache(s), Denies lethargy and Denies poor appetite Eyes Reports as per HPI, Denies blurry vision, Denies change in vision, Reports eye discharge (tearing), Reports irritation, Reports itchy eyes and Denies eye pain ENT Reports as per HPI and Denies headache(s) Cardiovascular Reports as per HPI, Denies chest pain and Denies dyspnea Respiratory Reports as per HPI and Denies dyspnea Gastrointestinal Reports as per HPI, Denies abdominal pain, Denies change in bowel habits, Denies nausea and Denies vomiting Integumentary/Breasts Reports as per HPI and Denies rash Neurologic Reports as per HPI and Denies headache(s) Allergic/Immunologic Reports itchy eyes [facility] Medical History Contraception (Acute) Depression with anxiety (Acute) Smoker (Acute 05/28/14) Irregular bleeding (Resolved) Kidney stones (Resolved 11/04/15) Surgical History Ureteroscopy, EHL, or Laser Lithotripsy stent placement left kidney and ureter Social History Smoking/Tobacco Use Status: Former Tobacco Use Alcohol Intake: never Drug use: Never 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 Do you feel safe at home: Yes Do you feel safe in your relationship?: Yes Female Reproductive History Menstrual control method: vaginal ring History History 2 Para 2 Hx # Term Pregnancies Multiple births Hx # Pregnancies Ectopic pregnancies AB induced Hx Number of Living Children AB spontaneous Exam Const General: cooperative, healthy appearing, comfortable, no acute distress, well developed and well groomed Nutritional Appearance: average body habitus and well nourished Orientation: alert and awake [facility] Head: normal to inspection, normocephalic and atraumatic Ears: hearing grossly normal bilaterally, external ears normal and TM's normal bilaterally General nose exam: external nose normal and nares normal Face and sinus: normal facial exam, sinuses nontender and face symmetric Mouth: oral mucosae normal, lip normal, tongue normal, oropharynx normal and moist mucous membranes Teeth and gingiva: dentition normal Throat: posterior oropharynx normal, tonsils normal and uvula midline Eyes Alignment and Position: alignment normal and position normal Periorbital: periorbital findings normal Eyelids: eyelids normal Conjunctivae: conjunctival abnormality left conjunctival injection Pupils: PERRL and normal by confrontation Direct ophthalmoscopy: normal light reflex Neck Neck: normal visual inspection, full ROM, no lymphadenopathy and no meningeal signs Resp Effort & Inspection: normal respiratory effort, able to speak in complete sentences and no respiratory distress Auscultation: clear to auscultation bilaterally, no rales, no rhonchi and no wheezes Cardio Rate: regular rate Rhythm: regular rhythm Heart Sounds: S1 normal and S2 normal Skin General skin exam: no rashes or lesions noted Neuro General: alert and awake Cognition: normal cognition Speech: speech normal Gait: normal gait Psych Appearance: grossly normal and well kempt Mental Status: mental status grossly normal Speech and Movement: speech and movement normal Course Vital Signs Temperature 36.5 C 05/22/19 11:40 Pulse 72 05/22/19 11:40 Respiratory Rate 16 05/22/19 11:40 Blood Pressure 122/67 05/22/19 11:40 Pulse Oximetry 100 05/22/19 11:40 Temperature 36.5 C 05/22/19 11:40 Temperature Source Temporal Artery Scan 05/22/19 11:40 Pulse 72 05/22/19 11:40 Respiratory Rate 16 05/22/19 11:40 Respiratory Effort Non-Labored 05/22/19 11:44 Blood Pressure 122/67 05/22/19 11:40 Blood Pressure Position Sitting 05/22/19 11:40 Pulse Oximetry 100 05/22/19 11:40 Oxygen Delivery Method Room Air 05/22/19 11:40 Oxygen Flow Rate 0 05/22/19 11:40 Pain Level 2 05/22/19 11:40
== END 2019-05-22 13:14 | disposition home or self-care (01) ==
PROVIDERS: Emergency Provider Physician Assistant; PCP Nurse Practitioner
DX: H10.31 Unspecified acute conjunctivitis, right eye (principal)
CPT/HCPCS: 99282

== ENCOUNTER 2019-08-15 21:39 | Emergency (ER) | payer MEDICAID, SELFPAY ==
[2019-08-15 21:44] VITALS: BP 135/90; PULSE 104; RESP 20; TEMP 36.9; O2SAT 98
--- NOTE | 2019-08-15 21:44 | DI.RAD_ITS ---
EXAM: XR ANKLE LT COMPLETE CLINICAL HISTORY: pain, injury, lateral ankle pain TECHNIQUE: 2D digital imaging was performed. COMPARISON: No exams were available for comparison FINDINGS: BONES: No acute fracture is present. No bony destructive lesion is seen. JOINTS:The ankle mortise is normally aligned. SOFT TISSUE: There is soft tissue swelling laterally. IMPRESSION: No acute fracture or dislocation. Lateral soft tissue swelling.
--- NOTE | 2019-08-15 22:48 | DI.VRAD_ITS ---
PROCEDURE INFORMATION: Exam: XR Left Ankle Exam date and time: 08/15/2019 10:00 PM Clinical history: 29 years old, female; Left; Patient HX: Lateral ankle pain, injury TECHNIQUE: Imaging protocol: XR Left ankle. Views: 3 or more views. COMPARISON: No relevant prior studies available. FINDINGS: Bones/joints: No acute fracture identified. Soft tissues: There is soft tissue swelling at the lateral malleolus. IMPRESSION: 1. No acute fracture identified. 2. Soft tissue swelling at the lateral malleolus. Ligamentous injury not excluded. If symptoms persist, consider followup imaging in 7 days or alternatively imaging modalities. Dictated and Authenticated by: Denise Sherman MD. Ordering:GUILLERMO Decker MD
--- NOTE | 2019-08-15 23:03 | ED.GENADUL_ITS ---
Discharge Plan Disposition Patient Disposition: HOME Condition: Good Discharge Details Chief Complaint: Orthopedic Clinical Impression: Ankle sprain Primary Care Provider: Pilar Weeks ED Provider: Brianne Luna Home Meds and New Rx's Prescriptions: No Action NuvaRing 0.12-0.015 mg/24 hr ring 1 vag ring VG q month Qty: 3 RF: 3 Discharge Instructions Instructions: Ankle Sprain (ED) Additional Instructions: Rest. Activities as tolerated. Elevate injury to prevent swelling. Ice to the area of discomfort for 15 min. 3-5 times daily. Motrin every 8 hours with food or Tylenol every 6 hours for soreness if needed over the counter for comfort. Followup with orthopedic doctor as discussed if not improving in one week. Return for any worsening or concerns sooner if needed. Stand Alone Forms: Work Release Referrals: Grant Vega MD [ [facility] STAFF PHYSICIAN] - Medical Decision Making This is a 29-year-old woman who presents after rolling her ankle yesterday playing with her children. Patient reports 1 day of persistent pain with ambulation and limping gait. Patient is concerned with lateral ankle injury after rolling her ankle. X-ray does not reveal any identifiable fracture. Discussed patient's x-rays results with her. Made aware that she likely has a ligamentous sprain however tear more significant injury cannot be ruled out on x-ray. Rice encouraged. Prior to discharge, my usual and customary return precautions were reviewed with the patient - this included follow-up instructions and reasons to return to the Emergency Department if conditions worsens, does not improve as expected, or other new concerns arise. HPI General Date/Time Provider Initiated Documentation: 08/15/19 21:41 . HPI Narrative: Patient presents for complaints of left ankle pain. Patient reports yesterday she rolled her left ankle when playing with her kids jumping up and down heard a pop felt immediate pain. Limping gait since. Patient denies numbness, tingling or weakness. Patient denies any open wounds. Patient denies any other sites of pain or concerns at this time. Related Data Home Medications Medication Instructions Recorded Confirmed etonogestrel-ethinyl estradiol 1 vag ring VG q month #3 each 11/25/18 08/15/19 0.12 mg -0.015 mg/24 hr vaginal ring Previous Rx's Medication Instructions Recorded etonogestrel-ethinyl estradiol 1 vag ring VG q month #3 each 11/25/18 0.12 mg -0.015 mg/24 hr vaginal ring Allergies Allergy/AdvReac Type Severity Reaction Status Date / Time No Known Drug Allergies Allergy Verified 08/15/19 21:47 General Stated Complaint: Orthopedic HAM: 4 Review of Systems Review of Systems ROS Unobtainable: All systems reviewed & are unremarkable except as noted in HPI and below ENT Ears, Nose, Mouth, and Throat: Denies neck pain Musculoskeletal Musculoskeletal: Reports abnormal gait, Denies deformity, Denies neck pain, Denies numbness and Denies tingling Integumentary/Breasts Skin/Breast: Denies erythema and Denies wounds Neurologic Neurologic: Reports abnormal gait, Denies numbness and Denies tingling [facility] Medical History Contraception (Acute) Depression with anxiety (Acute) Irregular bleeding (Resolved) Kidney stones (Resolved 11/04/15) Surgical removal and stent placement Smoker (Acute 05/28/14) 2 cpd (01/27/15) quit 03/2014 Surgical History stent placement left kidney and ureter Ureteroscopy, EHL, or Laser Lithotripsy Social History Smoking/Tobacco Use Status: Former Tobacco Use Alcohol Intake: never Drug use: Never 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 Well hydrated. Alert and alert. MUSCULOSKELETAL: Normal Gait. FROM of all extremities. No knee pain with palpation of the marti pain with palpation or calf pain with palpation. No Achilles tenderness. No medial malleolus tenderness of the left ankle. Mild lateral malleolus tenderness noted. No ecchymosis, minimal swelling. No foot pain with palpation throughout the dorsal and plantar aspects of the foot. No toe pain with palpation. Pulses are intact. Sensation intact distally throughout the foot. Flexion extension intact with mild pain. SKIN: Normal. Dry. No rashes. NEURO: Alert and awake. Speech clear. PSYCH: Normal affect. Cooperative. Course Vital Signs Vital signs: Vital Signs Temperature 36.9 C 08/15/19 21:44 Pulse 104 H 08/15/19 21:44 Respiratory Rate 20 08/15/19 21:44 Blood Pressure 135/90 08/15/19 21:44 Pulse Oximetry 98 08/15/19 21:44 Temperature 36.9 C 08/15/19 21:44 Temperature Source Temporal Artery Scan 08/15/19 21:44 Pulse 104 H 08/15/19 21:44 Respiratory Rate 20 08/15/19 21:44 Respiratory Effort Non-Labored 08/15/19 21:48 Blood Pressure 135/90 08/15/19 21:44 Blood Pressure Position Sitting 08/15/19 21:44 Pulse Oximetry 98 08/15/19 21:44 Oxygen Delivery Method Room Air 08/15/19 21:44 Oxygen Flow Rate 0 08/15/19 21:44 Pain Level 8 08/15/19 21:48
== END 2019-08-15 23:08 | disposition home or self-care (01) ==
PROVIDERS: Emergency Provider Physician Assistant; PCP Nurse Practitioner
DX: S93.402A Sprain of unspecified ligament of left ankle, initial encounter (principal); W18.49XA Other slipping, tripping and stumbling without falling, initial encounter
CPT/HCPCS: 29515; 99283; 73610; 99282; E0114; L1902

== ENCOUNTER 2019-11-09 17:38 | Outpatient (REF) | payer MEDICAID, SELFPAY ==
[2019-11-09 19:30] LABS: ALT 21 U/L (14-59); AST 15 U/L (15-37); Albumin 3.4 g/dL (3.4-5.0); Alkaline Phosphatase 73 U/L (46-116); Anion Gap 10.6 mmol/L (3-11); BUN 9 mg/dL (7-18); Bilirubin, Total 0.3 mg/dL (0.2-1.0); CO2 27.4 mmol/L (21.0-32.0); CREATININE 0.59 mg/dL (0.55-1.02); Calcium 8.8 mg/dL (8.5-10.1); Chloride 105 mmol/L (98-107); Glucose 80 mg/dL (74-106); Potassium 3.9 mmol/L (3.5-5.1); Sodium 143 mmol/L (136-145); TSH (W/Ref FT4) 1.64 uIU/mL (0.36-3.74); Total Protein 6.6 g/dL (6.4-8.2)
[2019-11-09 20:06] LABS: Vitamin D 25 Total 15.9 ng/ml (30-100)
== END 2019-11-09 17:58 ==
LOC: NCHCN 17:38
PROVIDERS: PCP Nurse Practitioner; Visit Provider Nurse Practitioner
DX: E55.9 Vitamin D deficiency, unspecified (principal); F32.9 Major depressive disorder, single episode, unspecified; Z13.29 Encounter for screening for other suspected endocrine disorder
CPT/HCPCS: 80053; 82306; 84443

== ENCOUNTER 2020-01-13 09:50 | Outpatient (REF) | payer MEDICAID, SELFPAY ==
[2020-01-14 04:43] LABS: Vitamin D 25 Total 29.6 ng/ml (30-100)
== END 2020-01-13 10:10 ==
LOC: NCHCN 09:50
PROVIDERS: PCP Nurse Practitioner; Visit Provider Nurse Practitioner
DX: E55.9 Vitamin D deficiency, unspecified (principal)
CPT/HCPCS: 82306

== ENCOUNTER 2020-02-17 10:40 | Outpatient (REF) | payer MEDICAID, SELFPAY ==
[2020-02-17 17:50] LABS: Abs Immature Grans 0.01 k/cumm (0.0-0.09); Absolute Basophil Count 0.01 k/cumm (0.0-0.2); Absolute Eosinophil Count 0.23 k/cumm (0.0-0.7); Absolute Lymphocyte Count 2.51 k/cumm (1.2-3.4); Absolute Monocyte Count 0.38 k/cumm (0.11-0.7); Absolute Neutrophil Count 4.24 k/cumm (1.2-6.7); Basophils % 0.1; Eosinophils % 3.1; HCT 39.1 % (36.0-46.0); HGB 12.8 g/dL (12.0-15.5); Immature Grans % 0.1 %; Mean Corp. HGB Concentration 32.7 g/dL (32.0-36.0); Mean Corpuscular Hemoglobin 30.1 pg (27.0-33.0); Mean Platelet Volume 11.1 fL (8.0-11.0); Monocytes % 5.1; Neutrophils % 57.6; Platelet Count 254 x1000/uL (130-400); RBC 4.25 m/cumm (4.00-5.20); RBC Distribution Width 12.1 % (11.7-14.6); White Blood Cell Count 7.38 k/cumm (4.4-10.8)
== END 2020-02-17 11:00 ==
LOC: NCHCN 10:40
PROVIDERS: PCP Nurse Practitioner; Visit Provider Nurse Practitioner Psychiatric/Mental Health
DX: Z51.81 Encounter for therapeutic drug level monitoring (principal)
CPT/HCPCS: 80053; 80061; 85025

== ENCOUNTER 2021-03-17 11:27 | Emergency (ER) | payer MEDICAID, SELFPAY ==
[2021-03-17 11:43] VITALS: BP 128/76; PULSE 65; RESP 18; TEMP 36.6; O2SAT 98
--- NOTE | 2021-03-17 11:52 | W.ED.GENAD ---
Discharge Plan Disposition Patient Disposition: HOME Condition: Stable Discharge Details Clinical Impression: Left wrist sprain Primary Care Provider: Rashmi Root ED Provider: Rebecca Siu Home Meds and New Rx's Prescriptions: Continued etonogestrel-ethinyl estradiol [NuvaRing] 0.12-0.015 mg/24 hr ring 1 vag ring VG q month Qty: 3 RF: 3 Discharge Instructions Instructions: Wrist Sprain (ED) Additional Instructions: Rest, ice, and elevate the affected area as much as possible. Alternate tylenol and motrin as needed and directed for pain. Follow-up with your primary care doctor in 1 week. Return to the emergency department with any worsening or new concerning symptoms. Discharge Data Discharge Physician: Rebecca Siu Medical Decision Making 31-year-old female presents with left wrist and forearm pain after a patient fell onto her left wrist and forearm while attempting to roll and transfer the patient yesterday. She is complaining of pain in her left wrist and left distal forearm. She has pain with range of motion but no evidence of trauma, deformity and she is neurovascularly intact She was referred for x-rays which were negative for acute findings. Patient requested to go back to work today. She is given a wrist splint. She declined any medication for pain here. Advised to follow up with the primary care doctor for re-evaluation. Usual and customary return precautions given prior to discharge. Medical Records Medical records reviewed: Yes I reviewed the patient's medical records. Imaging Data Radiologic Study: Radiologist's impression: XR WRIST LT COMPLETE CLINICAL HISTORY: L wrist pain s/p transferring pt, r/o fx. TECHNIQUE: 2D digital imaging was performed. COMPARISON: No exams were available for comparison FINDINGS: BONES: No acute fracture is present. No bony destructive lesion is seen. JOINTS: The carpal bones are normally aligned. SOFT TISSUE: Normal. IMPRESSION: Unremarkable radiographs of the left wrist. HPI General Mode of arrival: ambulatory. Date/Time Provider Initiated Documentation: 03/17/21 11:51. Limitations to Documentation: no limitations. Information obtained by: patient. HPI Narrative: Patient is a 31-year-old female presents with left wrist and forearm pain after helping to transfer patient at the [facility] and her wrist got caught underneath the patient. She is complaining of pain with movement of her left wrist. She has not taken anything for pain. She denies any other injury Related Data Home Medications Medication Instructions Recorded Confirmed etonogestrel 0.12 mg-ethinyl 1 vag ring VG q month #3 each 11/25/18 03/17/21 estradiol 0.015 mg/24 hr vaginal ring Previous Rx's Medication Instructions Recorded etonogestrel 0.12 mg-ethinyl 1 vag ring VG q month #3 each 11/25/18 estradiol 0.015 mg/24 hr vaginal ring Allergies Allergy/AdvReac Type Severity Reaction Status Date / Time No Known Drug Allergies Allergy Verified 03/17/21 11:47 General Stated Complaint: Orthopedic HAM: 4 Review of Systems All systems reviewed & are unremarkable except as noted in HPI and below Constitutional Constitutional: Reports as per HPI, Denies chills and Denies fever(s) Eyes Eyes: Denies blurry vision ENT Ears, Nose, Mouth, and Throat: Denies dizziness, Denies sore throat and Denies throat swelling Cardiovascular Cardiovascular: Denies chest pain and Denies dyspnea Respiratory Respiratory: Denies cough and Denies dyspnea Gastrointestinal Gastrointestinal: Denies abdominal pain, Denies diarrhea and Denies vomiting Genitourinary Genitourinary: Denies hematuria and Denies dysuria Musculoskeletal Musculoskeletal: Denies back pain and Denies numbness Integumentary/Breasts Skin/Breast: Denies lesions and Denies rash Neurologic Neurologic: Denies dizziness, Denies localized weakness and Denies numbness Allergic/Immunologic Allergic/Immunologic: Denies throat swelling PFSH Medical History Contraception Depression with anxiety Irregular bleeding Kidney stones (11/04/15) Surgical removal and stent placement Smoker (05/28/14) 2 cpd (01/27/15) quit 03/2014 Surgical History stent placement left kidney and ureter Ureteroscopy, EHL, or Laser Lithotripsy Family History Mother Alcohol abuse Father Substance abuse marijuana now Alcohol abuse Brother No problems noted. Brother No problems noted. Brother No problems noted. Grandfather No problems noted. Grandfather No problems noted. Grandmother Diabetes Alcohol abuse Essential hypertension Heart disease Hyperlipidemia Mental disorder depression and anxiety Myocardial infarction Grandmother Kidney stones Cholestasis Son No problems noted. 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 Do you feel safe at home: Yes Do you feel safe in your relationship?: Yes Female Reproductive History Menstrual control method: vaginal ring History History 2 Para 2 Hx # Term Pregnancies Multiple births Hx # Pregnancies Ectopic pregnancies AB induced Hx Number of Living Children AB spontaneous Exam Const General: cooperative, healthy appearing and no acute distress HENMT Head: normal to inspection Mouth: oral mucosae normal Eyes General: appearance normal, both eyes and all related structures Neck Neck: normal visual inspection Resp Effort & Inspection: normal respiratory effort and able to speak in complete sentences Cardio Rate: regular rate Skin General skin exam: no rashes or lesions noted Neuro General: patient alert, patient awake and patient oriented x3 Motor: muscle tone normal throughout Extrem General: normal to inspection Other: Tenderness to xpalpation to left dorsal and volar wrist and left medial mid to distal forearm. There is no left snuffbox tenderness.. She has pain with flexion and extension. Left radial and ulnar pulses intact. No tenderness palpation to left shoulder, elbow, hand or fingers. Psych Appearance: grossly normal Affect: normal affect Course Vital Signs Vital signs: Vital Signs Temperature 97.9 F 03/17/21 11:43 Pulse 65 03/17/21 11:43 Respiratory Rate 18 03/17/21 11:43 Blood Pressure 128/76 03/17/21 11:43 Pulse Oximetry 98 03/17/21 11:43 Temperature 97.9 F 03/17/21 11:43 Temperature Source Temporal Artery Scan 03/17/21 11:43 Pulse 65 03/17/21 11:43 Respiratory Rate 18 03/17/21 11:43 Respiratory Effort Non-Labored 03/17/21 11:47 Blood Pressure 128/76 03/17/21 11:43 Blood Pressure Position Sitting 03/17/21 11:43 Pulse Oximetry 98 03/17/21 11:43 Oxygen Delivery Method Room Air 03/17/21 11:43 Oxygen Flow Rate 0 03/17/21 11:43 Pain Level 7 03/17/21 11:43
--- NOTE | 2021-03-17 12:12 | DI.RAD_ITS ---
Exam(s) XR WRIST LT COMPLETE EXAM: XR WRIST LT COMPLETE CLINICAL HISTORY: L wrist pain s/p transferring pt, r/o fx. TECHNIQUE: 2D digital imaging was performed. COMPARISON: No exams were available for comparison FINDINGS: BONES: No acute fracture is present. No bony destructive lesion is seen. JOINTS: The carpal bones are normally aligned. SOFT TISSUE: Normal. IMPRESSION: Unremarkable radiographs of the left wrist. DATA REPOSITORY: RADIATION DOSE DELIVERED:
== END 2021-03-17 13:09 | disposition home or self-care (01) ==
PROVIDERS: Emergency Provider Physician Assistant; PCP Nurse Practitioner
DX: S63.592A Other specified sprain of left wrist, initial encounter (principal); X50.0XXA Overexertion from strenuous movement or load, initial encounter; Y99.0 Civilian activity done for income or pay
CPT/HCPCS: 29125; 99283; 73110

== ENCOUNTER 2021-05-19 19:59 | Emergency (ER) | payer MEDICAID, SELFPAY ==
[2021-05-19 20:01] VITALS: BP 134/78; PULSE 90; RESP 18; TEMP 36.9; O2SAT 96
--- NOTE | 2021-05-19 20:40 | ED.GENADUL_ITS ---
Discharge Plan Disposition Patient Disposition: HOME Condition: Stable Discharge Details Clinical Impression: Pharyngitis Primary Care Provider: Rashmi Root ED Provider: Lorraine Pickens Home Meds and New Rx's Prescriptions: No Action etonogestrel-ethinyl estradiol [NuvaRing] 0.12-0.015 mg/24 hr ring 1 vag ring VG q month Qty: 3 RF: 3 Discharge Instructions Instructions: Pharyngitis (ED) Additional Instructions: The rapid strep swab today was negative. The Covid swab is pending. We will call you with the result. I do recommend quarantine for at least 7 days or unt il negative test. Gargle with warm salt water please take Tylenol or Ibuprofen with food every 4-6 hours as needed for pain and swelling. Follow up with primary care provider in 3-5 days. Return to ED sooner if any worsening or concerns. Increase oral fluids. Stand Alone Forms: PENDING COVID-19 TESTING, Work Release Referrals: Rashmi Root [Primary Care Provider] - Discharge Data Discharge Date/Time-TO BE ENTERED AT DEPARTURE: 05/19/21 21:25 Medical Decision Making 31-year-old female presents to the ER chief complaint sore throat x2 days. Associated with bilateral ear pain, stuffy runny nose. He does have a history of tonsillectomy. No cough no fever. Positive smoker past medical history of kidney stones, depression and stent placement to left kidney. Patient has been vaccinated with the [employer] vaccination last injection given in December. At this time strep swab ordered, Covid swab, dexamethasone and ibuprofen. Rapid strep negative patient reports improvement of symptoms. Given a work note and discussed home care including salt water gargles alternating ibuprofen Tylenol. Patient verbalizes understanding. HPI General Mode of arrival: ambulatory . Date/Time Provider Initiated Documentation: 05/19/21 20:27 . Limitations to Documentation: no limitations . Information obtained by: patient . HPI Narrative: 31-year-old female presents to the ER chief complaint sore throat x2 days. Associated with bilateral ear pain, stuffy runny nose. He does have a history of tonsillectomy. No cough no fever. Positive smoker past medical history of kidney stones, depression and stent placement to left kidney. Patient has been vaccinated with the [employer] vac cination last injection given in December. Related Data Home Medications Medication Instructions Recorded Confirmed etonogestrel 0.12 mg-ethinyl 1 vag ring VG q month #3 each 11/25/18 05/19/21 estradiol 0.015 mg/24 hr vaginal ring Previous Rx's Medication Instructions Recorded etonogestrel 0.12 mg-ethinyl 1 vag ring VG q month #3 each 11/25/18 estradiol 0.015 mg/24 hr vaginal ring Allergies Allergy/AdvReac Type Severity Reaction Status Date / Time No Known Drug Allergies Allergy Verified 05/19/21 20:07 General Stated Complaint: Sorethroat HAM: 4 Review of Systems Narrative: Constitutional: Negative for weight loss, alert and oriented, well groomed, normal body habitus, appears comfortable. HEENT: Reports sore throat, headache, nasal discharge. Chest: Denies chest pain, palpitations, irregular rhythm, hypertension. Respiratory: Denies Shortness of breath, cough, hemoptysis. GI: Denies abdominal pain, nausea, vomiting, diarrhea, constipation. : Denies dysuria, hematuria, flank pain, rectal bleeding. Neuro: Denies dizziness, blurry vision, weakness, syncope, headache or facial n umbness. Hematologic: Denies easy bruising, intolerance to heat or cold, hair loss. PFSH Medical History Contraception Depression with anxiety Irregular bleeding Kidney stones (11/04/15) Surgical removal and stent placement Smoker (05/28/14) 2 cpd (01/27/15) quit 03/2014 Surgical History stent placement left kidney and ureter Ureteroscopy, EHL, or Laser Lithotripsy Family History Mother Alcohol abuse Father Substance abuse marijuana now Alcohol abuse Brother No problems noted. Brother No problems noted. Brother No problems noted. Grandfather No problems noted. Grandfather No problems noted. Grandmother Diabetes Alcohol abuse Essential hypertension Heart disease Hyperlipidemia Mental disorder depression and anxiety Myocardial infarction Grandmother Kidney stones Cholestasis Son No problems noted. 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 Appears stated age. Normal body habitus. Head: Normocephalic, no trauma. Eyes: Pupils PERRLA, Red reflex noted, EOM's intact. Eyelids symmetrical without lesions, discharge, or swelling. ENT: Bilateral TM's WNL, External ear normal to inspection, no mastoid TTP, swelling, or erythema, Nasal turbinates WNL, no nasal discharge. Normal dentition, Posterior oropharynx erythemic cobblestoning. No exudate tonsils are absent uvula is midline no swelling, no exudate. Chest: RRR, Normal S1, S2, distal pulses intact. Resp: Lungs clear to auscultation bilaterally, no wheezes, rales, or rhonchi. Musculoskeletal: Normal gait, 5/5 strength to all four extremities. Skin: No suspicious rashes or lesions. Capillary refill less than 2 sec. Hematologic/Lymphatic: No ecchymosis, no lymphadenopathy. Course Vital Signs Vital signs: Vital Signs Temperature 36.9 C 05/19/21 20:01 Pulse 90 05/19/21 20:01 Respiratory Rate 18 05/19/21 20:01 Blood Pressure 134/78 05/19/21 20:01 Pulse Oximetry 96 05/19/21 20:01 Temperature 36.9 C 05/19/21 20:01 Temperature Source Skin 05/19/21 20:01 Pulse 90 05/19/21 20:01 Respiratory Rate 18 05/19/21 20:01 Respiratory Effort Non-Labored 05/19/21 20:05 Blood Pressure 134/78 05/19/21 20:01 Blood Pressure Position Sitting 05/19/21 20:01 Pulse Oximetry 96 05/19/21 20:01 Oxygen Delivery Method Room Air 05/19/21 20:01 Oxygen Flow Rate 0 05/19/21 20:01 Pain Level 5 05/19/21 20:01
[2021-05-19] MEDS: Dexamethasone 10 MG/ML VIAL PO (20:46)
[2021-05-19] MEDS: Ibuprofen 600 MG TAB PO (20:47)
[2021-05-21 13:44] LABS: COVID-19 RT-PCR UVMMC Result Negative (Negative)
--- NOTE | 2021-05-22 15:12 | NUR.NOTE ---
Nursing Note: Negative COVID and negative strep results given to pt over the phone today after confirmation of identity. Pt aware her employer at [employer] had called to clarify work note. No information given, phone number taken. Clarified with provider who had seen on 05/19/2022 who states pt can return to work after negative result. Will call back employer to direct him to pt for any results.
--- NOTE | 2021-05-22 15:22 | NUR.NOTE ---
Nursing Note: Spoke with Joey at [facility], pt's employer at [phone] to close loop of communication and have him inquire with pt about any results. Joey stated he wanted to know if he 'sent her back in for a one hour test' and would [facility] do that. No personal information regarding pt's information or results given to employer. The only information regarding pt's results or date of service, including provider seen, was provided by Joey at [facility], stating from work note. Directed to laundry marker supervisor for further assistance and re-enforcement of pt's privacy.
== END 2021-05-19 21:25 | disposition home or self-care (01) ==
PROVIDERS: Emergency Provider Registered Nurse Emergency; PCP Nurse Practitioner
DX: J02.9 Acute pharyngitis, unspecified (principal)
CPT/HCPCS: 87880; 99282; U0003; 87081; J1100

== ENCOUNTER 2021-10-30 15:31 | Emergency (ER) | payer MEDICAID, SELFPAY ==
[2021-10-30 15:48] VITALS: BP 126/74; PULSE 99; RESP 17; TEMP 37.2; O2SAT 99
--- NOTE | 2021-10-30 16:41 | W.ED.GENAD ---
Discharge Plan Disposition Patient Disposition: HOME Condition: Stable Discharge Details Clinical Impression: Pharyngitis Primary Care Provider: Rashmi Root ED Provider: Tyler Treadwell Home Meds and New Rx's Prescriptions: Continued etonogestrel-ethinyl estradiol [NuvaRing] 0.12-0.015 mg/24 hr ring 1 vag ring VG q month Qty: 3 RF: 3 Discharge Instructions Instructions: Pharyngitis (ED) Additional Instructions: Rapid strep was negative, culture is pending. Your Covid test is also pending, I recommend quarantining until this test has resulted likely the next 2-3 days. [id number] Tylenol and/or Motrin as directed for discomfort. You may also find benefit from antihistamines and decongestants. Chloraseptic [place] as directed. Salt water gargles as tolerated as well. Please watch for new or worsening symptoms and return to the ER for any concerns. Lastly, I do recommend reaching out your primary care provider tomorrow to discuss your ER visit need for outpatient reevaluation. Discharge Data Discharge Date/Time-TO BE ENTERED AT DEPARTURE: 10/30/21 17:38 Medical Decision Making 31-year-old female, fully vaccinated, former smoker, presenting for sore throat bilateral ear pain, body aches, mild dry cough that began . Primary concern is that of sore throat. Will obtain rapid strep. Clinically she appears well, nontoxic, afebrile, managing her own secretions, no trismus, O2 sat 99% on room air and lungs are clear to auscultation. I see no clear indication to obtain x-ray of the chest as suspicion for pneumonia is extremely low. Given her symptoms will obtain a send out Covid swab. Airway is patent, no evidence of peritonsillar abscess. Rapid strep is negative. Given her erythema and mild edema, will give a single dose of Decadron. We discussed this is likely viral and the importance of treating with [id number] medications for symptomatic control as she has not taken any medications since her symptoms began. Adequate fluid intake to avoid dehydration. Encouraged to return to the ER for new or worsening symptoms. Patient has no additional questions or concerns and is comfortable with this plan. This documentation was generated using [employer] system, please disregard any oddities of phrase or misspellings. Medical Records Medical records reviewed: Yes I reviewed the patient's medical records. Lab Data Lab results reviewed: Yes I reviewed the patient's lab results. Labs: 10/30/21 16:40 Pharynx Group A Streptococcus Culture - Pending HPI General Mode of arrival: ambulatory. Date/Time Provider Initiated Documentation: 10/30/21 16:00. Limitations to Documentation: no limitations. Information obtained by: patient. HPI Narrative: This is a 31-year-old female, former smoker, denies past medical history, presenting to the ER for evaluation of sore throat, worse with swallowing, bilateral ear pressure, body ache, dry cough that has been present for the past days. She states that she is fully vaccinated against Covid. She has not taken any medications [id number] for her symptoms. She denies recent illness or sick contacts. Denies travel. She denies headache, fever, shortness of breath. Denies any GI symptoms whatsoever. Patient does tell me that she had Covid back in early July and that her sense of taste and smell has not been the same ever since that time. Related Data Home Medications Medication Instructions Recorded Confirmed etonogestrel 0.12 mg-ethinyl 1 vag ring VG q month #3 each 11/25/18 10/30/21 estradiol 0.015 mg/24 hr vaginal ring Previous Rx's Medication Instructions Recorded etonogestrel 0.12 mg-ethinyl 1 vag ring VG q month #3 each 11/25/18 estradiol 0.015 mg/24 hr vaginal ring Allergies Allergy/AdvReac Type Severity Reaction Status Date / Time No Known Drug Allergies Allergy Verified 10/30/21 15:55 General Stated Complaint: RespSymp HAM: 3 Review of Systems Constitutional Constitutional: Denies fever(s) and Denies headache(s) ENT Ears, Nose, Mouth, and Throat: Reports otalgia, Denies headache(s), Reports nasal congestion, Denies neck pain and Reports sore throat Cardiovascular Cardiovascular: Denies chest pain and Denies dyspnea Respiratory Respiratory: Reports cough and Denies dyspnea Musculoskeletal Musculoskeletal: Denies neck pain Neurologic Neurologic: Denies headache(s) PFSH All Active Problems Left wrist sprain (Acute) Pharyngitis (Acute) Contraception (Acute) Depression with anxiety (Acute) Smoker (Acute 05/28/14) Medical History Irregular bleeding Kidney stones (11/04/15) Surgical removal and stent placement Surgical History stent placement left kidney and ureter Ureteroscopy, EHL, or Laser Lithotripsy Family History Mother Alcohol abuse Father Substance abuse marijuana now Alcohol abuse Brother No problems noted. Brother No problems noted. Brother No problems noted. Grandfather No problems noted. Grandfather No problems noted. Grandmother Diabetes Alcohol abuse Essential hypertension Heart disease Hyperlipidemia Mental disorder depression and anxiety Myocardial infarction Grandmother Kidney stones Cholestasis Son No problems noted. 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 Do you feel safe at home: Yes Do you feel safe in your relationship?: Yes Female Reproductive History Menstrual control method: vaginal ring History History 2 Para 2 Hx # Term Pregnancies Multiple births Hx # Pregnancies Ectopic pregnancies AB induced Hx Number of Living Children AB spontaneous Exam Const General: cooperative, healthy appearing, comfortable and no acute distress Orientation: alert and awake HENMT Head: normal to inspection, normocephalic and atraumatic Ears: external ears normal, TM's normal bilaterally and EAC's normal General nose exam: nasal discharge clear Face and sinus: normal facial exam Mouth: oral mucosae normal and moist mucous membranes Throat: uvula midline, posterior oropharynx abnormal edema (mild) and erythema, uvula not displaced and no uvular edema Eyes General: appearance normal, both eyes and all related structures Conjunctivae: conjunctivae normal Neck Neck: normal visual inspection, full ROM, no lymphadenopathy, no meningeal signs, trachea midline, supple and nontender Resp Effort & Inspection: normal respiratory effort and able to speak in complete sentences Auscultation: clear to auscultation bilaterally Cardio Rate: regular rate Rhythm: regular rhythm Skin General skin exam: no rashes or lesions noted Neuro General: patient alert, patient awake, moves all extremities and no focal motor deficits Sensory Exam: no sensory deficits noted Psych Appearance: grossly normal Mental Status: mental status grossly normal Course Vital Signs Vital signs: Vital Signs Temperature 37.2 C 10/30/21 15:48 Pulse 99 H 10/30/21 15:48 Respiratory Rate 17 10/30/21 15:48 Blood Pressure 126/74 10/30/21 15:48 Pulse Oximetry 99 10/30/21 15:48 Temperature 37.2 C 10/30/21 15:48 Temperature Source Temporal Artery Scan 10/30/21 15:48 Pulse 99 H 10/30/21 15:48 Respiratory Rate 17 10/30/21 15:48 Respiratory Effort Non-Labored 10/30/21 15:52 Respiratory Depth Normal 10/30/21 15:52 Blood Pressure 126/74 10/30/21 15:48 Blood Pressure Position Sitting 10/30/21 15:48 Pulse Oximetry 99 10/30/21 15:48 Oxygen Delivery Method Room Air 10/30/21 15:48 Oxygen Flow Rate 0 10/30/21 15:48 Pain Level 10 10/30/21 15:48
[2021-10-30] MEDS: Dexamethasone 4 MG TAB 10 MG PO (17:10)
[2021-10-31 20:07] LABS: COVID-19 RT-PCR UVMMC Result Negative (Negative)
== END 2021-10-30 17:38 | disposition home or self-care (01) ==
PROVIDERS: Emergency Provider Physician Assistant; PCP Nurse Practitioner
DX: J02.9 Acute pharyngitis, unspecified (principal); R05.1 Acute cough; Z20.822 Contact with and (suspected) exposure to COVID-19; M79.18 Myalgia, other site; H92.03 Otalgia, bilateral
CPT/HCPCS: 87880; 99283; U0003; 87081; J8540

== ENCOUNTER 2022-09-21 13:02 | Outpatient (REF) | payer MEDICAID, SELFPAY ==
[2022-09-21 15:38] LABS: HCT 39.9 % (36.0-46.0); HGB 13.3 g/dL (11.2-15.7); MCH 30.5 pg (27.0-33.0); MCHC 33.3 % (32.0-36.0); MCV 92 fL (80-95); MPV 11.2 fL (8.0-11.0); Platelet Count 261 10^3/uL (130-400); RBC 4.36 10^6/uL (3.93-5.22); RDW 12.2 % (11.7-14.6); RDW-SD 41.6 fL; WBC 6.75 10^3/uL (4.4-10.8)
[2022-09-21 16:03] LABS: Iron 68 ug/dL (50-170); Total Iron Binding Capacity 484 ug/dL (250-450); Transferrin Sat 14 % (15-50)
[2022-09-21 16:13] LABS: Anion Gap 9.5 mmol/L (3-11); BUN 13 mg/dL (7-18); CO2 27.5 mmol/L (21.0-32.0); CREATININE 0.7 mg/dL (0.55-1.02); Calcium 9.1 mg/dL (8.5-10.1); Calculated LDL 84 mg/dL (<100); Chloride 104 mmol/L (98-107); Cholesterol 183 mg/dL (<200); Estimated GFR 118.51 (mL/min/1.73m2); Ferritin 135 ng/mL (8-252); Glucose 86 mg/dL (74-106); HDL Cholesterol 81 mg/dL (40-60); Potassium 3.9 mmol/L (3.5-5.1); Sodium 141 mmol/L (136-145); TSH (W/Ref FT4) 2.12 uIU/mL (0.36-3.74); Triglyceride 90 mg/dL (<150)
[2022-09-21 16:24] LABS: Vitamin D 25 Total 19.3 ng/mL (30-100)
== END 2022-09-21 13:03 | disposition home or self-care (01) ==
LOC: NCHCN 13:02
PROVIDERS: PCP Nurse Practitioner; Visit Provider Nurse Practitioner Family
DX: K52.9 Noninfective gastroenteritis and colitis, unspecified (principal); R53.82 Chronic fatigue, unspecified
CPT/HCPCS: 80048; 80061; 82306; 85027; 82728; 83540; 83550; 84443

== ENCOUNTER 2023-02-19 13:21 | Emergency (ER) | payer MEDICAID, SELFPAY ==
--- OUTSIDE RECORDS SUMMARY | 2023-02-19 13:29 | XMS_ITS | Continuity of Care Document ---
Author Name Unknown Organization [facility] Ambulatory Clinics Address [address] [place] [address] Care Team Providers Care Retail Loss Prevention Officer Name Role Phone Genet Aiken Primary Care Physician [phone] Encounter [facility] NBR [id number] Date(s): 12/12/22 - 12/12/22 [facility] Ambulatory Clinics [address], [place] [address] Encounter Diagnosis Irritable bowel syndrome with diarrhea(Discharge Diagnosis) - 12/12/22 Discharge Disposition: Home or Self Care Attending Physician: Dorita Youssef APRN Allergies, Adverse Reactions, Alerts Substance Reaction Severity Status MiraLax 1 Moderate Active 1Hives Assessment and Plan Future Appointments Functional Status 12/12/22 Other exposure to Infectious Disease Non e Medications dicyclomine 10 mg oral capsule 10 mg = 1 cap, Oral, QID, PRN diarrhea or abdominal pain, # 120 cap, 1 Refill(s), Pharmacy: [id number], 160.02, cm, 11/22/22 9:30:00 EST, Height/Length Dosing, 64.86, kg, 11/22/22 9:30:00 EST, Weight Dosing Start Date: 12/12/22 Stop Date: 01/01/23 Status: Ordered NuvaRing 0.120 mg-0.015 mg/24 hours vaginal ring 1 EA, VAG, every 4 wk, # 1 EA, 0 Refill(s) Start Date: 10/21/22 Status: Ordered Problem List Condition Confirmation Course Effective Dates Status Health St atus Informant Anxiety Confirmed Active Daytime somnolence Confirmed Active Depression Confirmed Active Fatigue Confirmed Active Irritable bowel syndrome with diarrhea Confirmed Active Melena Confirmed Active Bipolar 1 disorder, mixed Confirmed Active Knee pain Confirmed Active Vitamin D deficiency Confirmed Active Procedures Procedure Date Related Diagnosis Body Site Status Esophagogastroduodenoscopy a nd Colonoscopy with Biopsy 1 11/28/22 Comple moises Colonoscopy, flexible; diagn ostic, including collection of specimen(s) by brushing or washing, when performed (separate procedure) 11/27/22 Completed Esophagogastroduodenoscopy, flexible, transoral; diagnostic, including collection of specimen(s) by brushing or washing, when performed (separate procedure) 11/27/22 Completed Percutaneous nephrolithotomy Completed Surgical removal of wisdom tooth Completed Tonsillectomy Completed 1auto-populated from documented surgical case Vital Signs Most recent to oldest [Reference Range]: 1 Temperature Tympanic [36.6-37.9 Deg C] 3 6.8 Deg C (12/12/22 9:07 AM) Apical Heart Rate [60-100 bpm] 98 bpm (12/12/22 9:07 AM) Blood Pressure [90-140/60-90 mmHg] 118/7 4mmHg (12/12/22 9:07 AM) Weight 101.8 kg (12/12/22 9:07 AM) Weight Measured (lbs) 224.43 lb (12/12/22 9:07 AM) [place] Body Weight Calculated 52.4 kg (12/12/22 9:07 AM) Height 160.02 cm (12/12/22 9:07 AM) Height/Length Measured (inches) 63 inch (12/12/22 9:07 AM) BSA Measured 2.13 m2 (12/12/22 9:07 AM) Body Mass Index 39.76 kg/m2 (12/12/22 9:07 AM) Social History Social History Type Response Tobacco Current everyday tob acco user Tobacco Use:. Sex Physician Outpatient Note * Dorita Youssef APRN: PERFORM Event Display: Office Clinic Note Physician Authored Date: [id number] KVNG FINE :1990 Age:32 years Sex:Female Visit Date:12/12/2022 Primary Care Physician: Genet Aiken Chief Complaint Follow-up EGD and colonoscopy History of Present Illness Patient is a 32-year-old female here today with request??of??Genet Aiken??for??chronic diarrhea. ??She is an established patient here today for follow-up of EGD and colonoscopy. ??She states??having diarrhea since age of 10. ??Denies any work-up.?? She was advised by her previous PCP??that this was nor mal.?? She reports having??a cramp on her left side intermittently.?? Denies any nausea or vomiting. ??Denies constipation.?? On a daily she will have 2 bowel movements that are [place] form 6-7 out of bed a as many as 10. ??Denies any nocturnal symptoms. ??Does??mention melena and mucus but deniesany??use of iron or Pepto-Bismol.?? Denies hematochezia. ??Denies changes in weight or appetite. ??She avoids eating as it causes her to have diarrhea.?? She has fecal urgency without incontinence.??Denies any pyrosis or dyspepsia.?? Denies dysphagia or globus sensation. ?? States Imodium is working for a while but does not seem to be working any longer. ?? She reports since her colonoscopy??she has had 4 episodes of diarrhea??in the past 2 weeks.?? She is not having diarrhea after pork??or after eating??as she was before.?? Stools are still [place] form 6 or 7. ?? Does not use NSAIDS. ?? She still has her gallbladder. ?? 09/21/2022??complete metabolic panel,??CBC and ferritin were all normal. ?? Reports in [address] scan of the abdomen??at [facility]??with??bumps noted in her colon. ??A report is not available. ?? 11/28/2022 EGD was endoscopically normal. ??Biopsies rule out celiac disease, H. pylori infection??and there was no signs of gastric intestinal metaplasia. ?? On 11/28/2022 colonoscopy??with normal random colon biopsies showed no signs of colitis. ?? Denies a family history of gastrointestinal cancers or inflammatory bowel disease.?? Denies a family history of celiac disease. Review of Systems Pertinent positives and negatives are discussed in HPI. Physical Exam Vitals & Measurements T:??36.8?C ??(Tympanic)?? HR:??98??(Apical)?? BP:??118/74?? SpO2:??100%?? HT:??160.02??cm?? WT:??101.8??kg?? BMI:??39.76?? BSA:??2.13?? General: Well-nourished well-developed??female??in no acute distress. HEENT: Head is normocephalic, trachea midline, and no cervical lymphadenopathy. Respiratory: Respirations are even and unlabored. ??Lungs are clear to auscultation. Cardiovascular: Regular rate and rhythm with S1 and S2. Abdomen: Positive bowel sounds x4 quadrants, no masses, no guarding, no tenderness. ??No hepatosplenomegaly. ??Abdomen is soft. Skin: Warm, dry, and pink. Neurological: Alert and oriented x3, speech is clear and gait is steady. Psychological: Pleasant, calm and cooperative. Assessment/Plan 1.??Irritable bowel syndrome with diarrhea??K58.0 EGD and colonoscopy were both unremarkable. ??EGD??ruled out celiac disease and H. pylori infection.?? Colonoscopy was normal and no signs of colitis or??random biopsies.?? Repeat colonoscopy at the age of 46 for colon cancer screening.?? We discussed??treatments for IBS with diarrhea. ??Discussed plan for interaction.?? Will try dicyclomine 10 mg 4 times a day as needed.?? If she ends up taking this on a regular basis??we will consider medications for neuromodulation.?? Would consult with her primary care provider first??she has a history of bipolar disorder. ??Currently not on any medications.?? We will see patient back in 4 weeks to reassess. Orders: dicyclomine 10 mg oral capsule, 10 mg = 1 cap, Oral, QID, PRN diarrhea or abdominal pain, # 120 cap, 1 Refill(s), Pharmacy: [id number], 160.02, cm, 11/22/22 9:30:00 EST, Height/Length Dosing, 64.86, kg, 11/22/22 9:30:00 EST, Weight Dosing Follow-up Appointment Request LT_[id number], *Est. 01/09/23 +/- 4 days, Future Order, follow up IBS, In Approximately, [facility] G[facility]enterology Voice recognition software utilized which may result in minor banquet manager error. Problem List/Past Medical History Ongoing Anxiety Bipolar 1 disorder, mixed Daytime somnolence Depression Fatigue Irritable bowel syndrome with diarrhea Knee pain Melena Morbid obesity Vitamin D deficiency Historical Abdominal cramping Chronic diarrhea Loose stools Procedure/Surgical History ???Colonoscopy, flexible; diagnostic, including collection of specimen(s) by brushing or washing, when performed (separate procedure) (11/28/2022)???Esophagogastroduodenoscopy and Colonoscopy with Biopsy (11/28/2022)???Esophagogastroduodenoscopy, flexible, transoral; diagnostic, including collection of specimen(s) by brushing or washing, when performed (separate procedure) (11/28/2022)???Percutaneous nephrolithotomy???Surgical removal of wisdom tooth???Tonsillectomy Medications dicyclomine 10 mg oral capsule, 10 mg= 1 cap, Oral, QID, PRN, 1 refills NuvaRing 0.120 mg-0.015 mg/24 hours vaginal ring, 1 EA, VAG, every 4 wk Allergies MiraLax Social History Alcohol Current, 1-2 times per month Electronic Cigarette/Vaping Electronic Cigarette Use: Never. Substance Use Never Tobacco Current everyday tobacco user Tobacco Use:. Family History Daughter: History is negative Son: History is negative Electronically Signed on 12/12/22 09:30 AM Dorita Youssef APRN Patient Care team information Personnel Name: Genet Aiken Address: Address: [facility] [address] [place] [address]-
--- OUTSIDE RECORDS SUMMARY | 2023-02-19 13:29 | XMS_ITS | Continuity of Care Document ---
Author Name Unknown Organization [facility] Address [address] [place] [id number] Care Team Providers Care Hide Curer Name Role Phone Genet Aiken Primary Care Physician Encounter [facility] FIN NBR [phone] Date(s): 11/28/22 - 11/28/[address] [id number] Encounter Diagnosis Chronic diarrhea(Discharge Diagnosis) - 11/28/22 Melena(Discharge Diagnosis) - 11/28/22 Abdominal pain(Discharge Diagnosis) - 11/28/22 Discharge Disposition: Home f/u External Provider Attending Physician: Jose Hernandez MD Admitting Physician: Jose Hernandez MD Referring Physician: Jose Hernandez MD Allergies, Adverse Reactions, Alerts No Known Allergies Assessment and Plan Future Appointments Diagnostic Tests Pending * Urine Qual POCT 11/28/22 Functional Status 11/28/22 Family Member Travel History No recent t ravel Recent Travel History No recent travel Other exposure to Infectious Disease Non e 11/22/22 Living Situation Home independently ADLs Independent Medications NuvaRing 0.120 mg-0.015 mg/24 hours vaginal ring 1 EA, VAG, every 4 wk, # 1 EA, 0 Refill(s) Start Date: 10/21/22 Status: Ordered Problem List Condition Confirmation Course Effective Dates Status Health St [facility] Informant Anxiety Confirmed Active Chronic diarrhea Confirmed Active Daytime somnolence Confirmed Active Depression Confirmed Active Fatigue Confirmed Active Abdominal cramping Confirmed Active Melena Confirmed Active Bipolar 1 disorder, mixed Confirmed Active Knee pain Confirmed Active Vitamin D deficiency Confirmed Active Procedures Procedure Date Related Diagnosis Body Site Status Esophagogastroduodenoscopy a nd Colonoscopy with Biopsy 1 11/28/22 Comple moises Percutaneous nephrolithotomy Completed Surgical removal of wisdom tooth Completed Tonsillectomy Completed 1auto-populated from documented surgical case Vital Signs Most recent to oldest [Reference Range]: 1 2 3 Temperature Tympanic [36.6-37.9 Deg C] 37.1 Deg C (11/28/22 9:16 AM) Temperature Temporal Artery [36-38 Deg C] 37 Deg C (11/28/22 11:07 AM) Temperature Temporal Artery (DegF) [97.3-100 Deg F] 98.6 Deg F (11/28/22 11:07 AM) Peripheral Pulse Rate [60-100 bpm] 59 bpm *LOW* (11/28/22 11:30 AM) 73 bpm (11/28/22 11:15 AM) 83 bpm (11/28/22 11:09 AM) Heart Rate Monitored [60-100 bpm] 67 bpm (11/28/22 9:16 AM) Respiratory Rate [12-24 br/min] 16 br/min (11/28/22 9:16 AM) Blood Pressure [90-140/60-90 mmHg] 123/75mmHg (11/28/22 11:30 AM) 117/66mmHg (11/28/22 11:15 AM) 116/64mmHg (11/28/22 11:09 AM) Mean Arterial Pressure, Cuff [65-140 mmHg] 91 mmHg (11/28/22 11:30 AM) 83 mmHg (11/28/22 11:15 AM) 81 mmHg (11/28/22 11:09 AM) Mean Arterial Pressure Cuff 91 mmHg (11/28/22 11:30 AM) 81 mmHg (11/28/22 11:15 AM) 80 mmHg (11/28/22 11:09 AM) Blood Pressure Invasive [90-140/60-90 mmHg] 132/67mmHg (11/28/22 9:16 AM) Weight 105.23 kg (11/28/22 10:22 AM) 64.860 kg (11/22/22 9:22 AM) Weight Dosing 64.860 kg (11/22/22 9:22 AM) Height 160.020 cm (11/22/22 9:22 AM) Height/Length Dosing 160.020 cm (11/22/22 9:22 AM) Social History Social History Type Response Tobacco Never tobacco user T obacco Use:. Sex Hospital Discharge Instructions Patient Education 11/28/2022 10:07:33 Upper Endoscopy, Adult, Care After Upper Endoscopy, Adult, Care After This sheet gives you information about how to care for yourself after your procedure. Your health care provider may also give you more specific instructions. If you have problems or questions, contact your health care provider. What can I expect after the procedure? After the procedure, it is common to have: ??? A sore throat. ??? Mild stomach pain or discomfort. ??? Bloating. ??? Nausea. Follow these instructions at home: ??? Follow instructions from your health care provider about what to eat or drink after your procedure. ??? Return to your normal activities as told by your health care provider. Ask your health care provider what activities are safe for you. ??? Take ayrb-exl-ymltvij and prescription medicines only as told by your health care provider. ??? If you were given a sedative during the procedure, it can affect you for several hours. Do not drive or operate machinery until your health care provider says that it is safe. ??? Keep all follow-up visits as told by your health care provider. This is important. Contact a health care provider if you have: ??? A sore throat that lasts longer than one day. ??? Trouble swallowing. Get help right away if: ??? You vomit blood or your vomit looks like coffee grounds. ??? You have: ??? A fever. ??? Bloody, black, or tarry stools. ??? A severe sore throat or you cannot swallow. ??? Difficulty breathing. ??? Severe pain in your chest or abdomen. Summary ??? After the procedure, it is common to have a sore throat, mild stomach discomfort, bloating, andnausea. ??? If you were given a sedative during the procedure, it can affect you for several hours. Do not drive or operate machinery until your health care provider says that it is safe. ??? Follow instructions from your health care provider about what to eat or drink after your procedure. ??? Return to your normal activities as told by your health care provider. This information is not intended to replace advice given to you by your health care provider. Make sure you discuss any questions you have with your health care provider. Document Revised: 11/01/2020 Document Reviewed: 04/06/2019 [employer] Patient Education ?? 2021 [employer]. 11/28/2022 10:07:30 Irritable Bowel Syndrome, Adult Irritable Bowel Syndrome, Adult Irritable bowel syndrome (IBS) is a group of symptoms that affects the organs responsible for digestion (gastrointestinal or GI tract). IBS is not one specific disease. To regulate how the GI tract works, the body sends signals back and forth between the intestines and the brain. If you have IBS, there may be a problem with these signals. As a result, the GI tract does not function normally. The intestines may become more sensitive and overreact to certain things.This may be especially true when you eat certain foods or when you are under stress. There are four types of IBS. These may be determined based on the consistency of your stool (feces): ??? IBS with diarrhea. ??? IBS with constipation. ??? Mixed IBS. ??? Unsubtyped IBS. It is important to know which type of IBS you have. Certain treatments are more likely to be helpful for certain types of IBS. What are the causes? The exact cause of IBS is not known. What increases the risk? You may have a higher risk for IBS if you: ??? Are female. ??? Are younger than 40. ??? Have a family history of IBS. ??? Have a mental health condition, such as depression, anxiety, or post- traumatic stress disorder. ??? Have had a bacterial infection of your GI tract. What are the signs or symptoms? Symptoms of IBS vary from person to person. The main symptom is abdominal pain or discomfort. Othersymptoms usually include one or more of the following: ??? Diarrhea, constipation, or both. ??? Abdominal swelling or bloating. ??? Feeling full after eating a small or regular-sized meal. ??? Frequent gas. ??? Mucus in the stool. ??? A feeling of having more stool left after a bowel movement. Symptoms tend to come and go. They may be triggered by stress, mental health conditions, or certainfoods. How is this diagnosed? This condition may be diagnosed based on a physical exam, your medical history, and your symptoms. You may have tests, such as: ??? Blood tests. ??? Stool test. ??? X-rays. ??? CT scan. ??? Colonoscopy. This is a procedure in which your GI tract is viewed with a long, thin, flexible tube. How is this treated? There is no cure for IBS, but treatment can help relieve symptoms. Treatment depends on the type ofIBS you have, and may include: ??? Changes to your diet, such as: ??? Avoiding foods that cause symptoms. ??? Drinking more water. ??? Following a low-FODMAP (fermentable oligosaccharides, disaccharides, monosaccharides, and polyols) diet for up to 6 weeks, or as told by your health care provider. FODMAPs are sugars that are hard for some people to digest. ??? Eating more fiber. ??? Eating medium-sized meals at the same times every day. ??? Medicines. These may include: ??? Fiber supplements, if you have constipation. ??? Medicine to control diarrhea (antidiarrheal medicines). ??? Medicine to help control muscle tightening (spasms) in your GI tract (antispasmodic medicines). ??? Medicines to help with mental health conditions, such as antidepressants or tranquilizers. ??? Talk therapy or counseling. ??? Working with a diet and nutrition coordinator (dietitian) to help create a food plan that is right for you. ??? Managing your stress. Follow these instructions at home: Eating and drinking ??? Eat a healthy diet. ??? Eat medium-sized meals at about the same time every day. Do not eat large meals. ??? Gradually eat more fiber-rich foods. These include whole grains, fruits, and vegetables. This may be especially helpful if you have IBS with constipation. ??? Eat a diet low in FODMAPs. ??? Drink enough fluid to keep your urine pale yellow. ??? Keep a journal of foods that seem to trigger symptoms. ??? Avoid foods and drinks that: ??? Contain added sugar. ??? Make your symptoms worse. Dairy products, caffeinated drinks, and carbonated drinks can make symptoms worse for some people. General instructions ??? Take ddqb-qtd-izwrpqe and prescription medicines and supplements only as told by your health care provider. ??? Get enough exercise. Do at least 150 minutes of moderate-intensity exercise each week. ??? Manage your stress. Getting enough sleep and exercise can help you manage stress. ??? Keep all follow-up visits as told by your health care provider and therapist. This is important. Alcohol Use ??? Do not drink alcohol if: ??? Your health care provider tells you not to drink. ??? You are , may be , or are planning to become . ??? If you drink alcohol, limit how much you have: ??? 0???1 drink a day for women. ??? 0???2 drinks a day for men. ??? Be aware of how much alcohol is in your drink. In the [place] one drink equals one typical bottleof beer (12 oz), one-half glass of wine (5 oz), or one shot of hard liquor (1?? oz). Contact a health care provider if you have: ??? Constant pain. ??? Weight loss. ??? Difficulty or pain when swallowing. ??? Diarrhea that gets worse. Get help right away if you have: ??? Severe abdominal pain. ??? Fever. ??? Diarrhea with symptoms of dehydration, such as dizziness or dry mouth. ??? Bright red blood in your stool. ??? Stool that is black and tarry. ??? Abdominal swelling. ??? Vomiting that does not stop. ??? Blood in your vomit. Summary ??? Irritable bowel syndrome (IBS) is not one specific disease. It is a group of symptoms that affects digestion. ??? Your intestines may become more sensitive and overreact to certain things. This may be especially true when you eat certain foods or when you are under stress. ??? There is no cure for IBS, but treatment can help relieve symptoms. This information is not intended to replace advice given to you by your health care provider. Make sure you discuss any questions you have with your health care provider. Document Revised: 07/06/2021 Document Reviewed: 07/06/2021 [employer] Patient Education ?? 2021 [employer] 11/28/2022 10:07:25 Colonoscopy, Adult, Care After Colonoscopy, Adult, Care After This sheet gives you information about how to care for yourself after your procedure. Your health care provider may also give you more specific instructions. If you have problems or questions, contact your health care provider. What can I expect after the procedure? After the procedure, it is common to have: ??? A small amount of blood in your stool for 24 hours after the procedure. ??? Some gas. ??? Mild cramping or bloating of your abdomen. Follow these instructions at home: Eating and drinking ??? Drink enough fluid to keep your urine pale yellow. ??? Follow instructions from your health care provider about eating or drinking restrictions. ??? Resume your normal diet as instructed by your health care provider. Avoid heavy or fried foods that are hard to digest. Activity ??? Rest as told by your health care provider. ??? Avoid sitting for a long time without moving. Get up to take short walks every 1???2 hours. This is important to improve blood flow and breathing. Ask for help if you feel weak or unsteady. ??? Return to your normal activities as told by your health care provider. Ask your health care provider what activities are safe for you. Managing cramping and bloating ??? Try walking around when you have cramps or feel bloated. ??? Apply heat to your abdomen as told by your health care provider. Use the heat source that your health care provider recommends, such as a moist heat pack or a heating pad. ??? Place a towel between your skin and the heat source. ??? Leave the heat on for 20???30 minutes. ??? Remove the heat if your skin turns bright red. This is especially important if you are unable to feel pain, heat, or cold. You may have a greater risk of getting burned. General instructions ??? If you were given a sedative during the procedure, it can affect you for several hours. Do not drive or operate machinery until your health care provider says that it is safe. ??? For the first 24 hours after the procedure: ??? Do not sign important documents. ??? Do not drink alcohol. ??? Do your regular daily activities at a slower pace than normal. ??? Eat soft foods that are easy to digest. ??? Take mdcc-uwe-xdymgjs and prescription medicines only as told by your health care provider. ??? Keep all follow-up visits as told by your health care provider. This is important. Contact a health care provider if: ??? You have blood in your stool 2???3 days after the procedure. Get help right away if you have: ??? More than a small spotting of blood in your stool. ??? Large blood clots in your stool. ??? Swelling of your abdomen. ??? Nausea or vomiting. ??? A fever. ??? Increasing pain in your abdomen that is not relieved with medicine. Summary ??? After the procedure, it is common to have a small amount of blood in your stool. You may also have mild cramping and bloating of your abdomen. ??? If you were given a sedative during the procedure, it can affect you for several hours. Do not drive or operate machinery until your health care provider says that it is safe. ??? Get help right away if you have a lot of blood in your stool, nausea or vomiting, a fever, or increased pain in your abdomen. This information is not intended to replace advice given to you by your health care provider. Make sure you discuss any questions you have with your health care provider. Document Revised: 10/28/2020 Document Reviewed: 05/30/2020 [employer] Patient Education ?? 2021 [employer]. Discharge instructions * Caitlin Atkinson: PERFORM Event Display: Discharge Instructions Authored Date: [id number] KVNG FINE :1990 Age:32 years Sex:Female Visit Date:11/28/2022 Primary Care Physician: Genet [facility] Discharge Instructions We would like to thank you for allowing us to assist you with your healthcare needs. The following includes patient education materials and information regarding your injury/illness. After you leave the hospital, you may get your health information including your test results, physician notes and discharge information by accessing your Patient Portal. Your Next Steps Discharge Orders Discharge Patient Instructions, Call with any additional questions or concerns Discharge Patient Instructions, Call or come to emergency department for dizziness Discharge Patient Instructions, Call or come to emergency department chest pain, or shortness of breath Discharge Patient Instructions, Call or come to emergency department for fever greater than 100 ??F Discharge Patient Instructions, You should not be responsible for the care of others Discharge Patient Instructions, Do not sign any contracts, make any major decisions, or drive or operate machinery for 24 hours Discharge Patient Instructions, A light first meal may feel better in your stomach Discharge Patient Instructions, It is important that a responsible adult drive you home today Discharge Patient Instructions, Call or come to emergency department if vomiting blood or having black bowel movements, rectal bleeding or passing blood clots Discharge Patient Instructions, Passing gas rectally and belching is normal Discharge Patient Instructions, Cramping and abdominal bloating should subside in 1 hour or so Discharge Patient Instructions, Call or come to emergency department if having unusual pain or severe abdominal pain Discharge Patient Instructions, You may experience some gas cramps and abdominal bloating Discharge Patient Instructions, Avoid alcohol, tranquilizers, sleeping pills, or cold medicines for24 hours Discharge Patient Instructions, You may resume your normal diet and activity in 24 hours Scheduled Future Appointments Saturday 9:00 AM EST ?? Medications What How Much When Instructions Next Dose Unchanged etonogestrel-ethinyl estradiol (NuvaRing 0.120 mg-0.015 mg/ 24 hours vaginal ring) 1 Each Vaginal (in the vagina) Every 4 weeks Your Summary Your Care Team Admitting Physician - Jose Hernandez MD Attending Physician - Jose Hernandez MD Primary Care Physician - Genet Aiken Referring Physician - Jose Hernandez MD Your Diagnosis Chronic diarrhea Melena Abdominal pain Problems Ongoing - Any problem that you are currently receiving treatment for. Abdominal cramping Anxiety Bipolar 1 disorder, mixed Chronic diarrhea Daytime somnolence Depression Fatigue Knee pain Melena Morbid obesity Vitamin D deficiency Historical - Any problem that you are no longer receiving treatment for. Loose stools Procedures History ???Esophagogastroduodenoscopy and Colonoscopy with Biopsy (11/28/2022) Tests Performed/Pending Urine Qual POCT?-- Results Pending -- You will be contacted within 72 hours with your results. Discharge Vitals Temperature??(Temporal Artery) 98.6 ??F (37 ??C) Heart Rate??(Peripheral) 73 Respiratory Rate?? 16 Blood Pressure?? 117/66?? Blood Pressure?? 132/67(Line)?? Weight?? 232.03 lb (105.23 kg) Allergies No Known Allergies Education Materials Upper Endoscopy, Adult, Care After This sheet gives you information about how to care for yourself after your procedure. Your health care provider may also give you more specific instructions. If you have problems or questions, contact your health care provider. What can I expect after the procedure? After the procedure, it is common to have: ? A sore throat. ? Mild stomach pain or discomfort. ? Bloating. ? Nausea. Follow these instructions at home: ? Follow instructions from your health care provider about what to eat or drink after your procedure. ? Return to your normal activities as told by your health care provider. Ask your health care provider what activities are safe for you. ? Take pfxk-usq-ebmesne and prescription medicines only as told by your health care provider. ? If you were given a sedative during the procedure, it can affect you for several hours. Do not drive or operate machinery until your health care provider says that it is safe. ? Keep all follow-up visits as told by your health care provider. This is important. Contact a health care provider if you have: ? A sore throat that lasts longer than one day. ? Trouble swallowing. Get help right away if: ? You vomit blood or your vomit looks like coffee grounds. ? You have: ? A fever. ? Bloody, black, or tarry stools. ? A severe sore throat or you cannot swallow. ? Difficulty breathing. ? Severe pain in your chest or abdomen. Summary ? After the procedure, it is common to have a sore throat, mild stomach discomfort, bloating, and nausea. ? If you were given a sedative during the procedure, it can affect you for several hours. Do not drive or operate machinery until your health care provider says that it is safe. ? Follow instructions from your health care provider about what to eat or drink after your procedure. ? Return to your normal activities as told by your health care provider. This information is not intended to replace advice given to you by your health care provider. Make sure you discuss any questions you have with your health care provider. Document Revised: 11/01/2020 Document Reviewed: 04/06/2019 [employer] Patient Education ?? 202 [employer] Irritable Bowel Syndrome, Adult Irritable bowel syndrome (IBS) is a group of symptoms that affects the organs responsible for digestion (gastrointestinal or GI tract). IBS is not one specific disease. To regulate how the GI tract works, the body sends signals back and forth between the intestines and the brain. If you have IBS, there may be a problem with these signals. As a result, the GI tract does not function normally. The intestines may become more sensitive and overreact to certain things.This may be especially true when you eat certain foods or when you are under stress. There are four types of IBS. These may be determined based on the consistency of your stool (feces): ? IBS with diarrhea. ? IBS with constipation. ? Mixed IBS. ? Unsubtyped IBS. It is important to know which type of IBS you have. Certain treatments are more likely to be helpful for certain types of IBS. What are the causes? The exact cause of IBS is not known. What increases the risk? You may have a higher risk for IBS if you: ? Are female. ? Are younger than 40. ? Have a family history of IBS. ? Have a mental health condition, such as depression, anxiety, or post-traumatic stress disorder. ? Have had a bacterial infection of your GI tract. What are the signs or symptoms? Symptoms of IBS vary from person to person. The main symptom is abdominal pain or discomfort. Othersymptoms usually include one or more of the following: ? Diarrhea, constipation, or both. ? Abdominal swelling or bloating. ? Feeling full after eating a small or regular-sized meal. ? Frequent gas. ? Mucus in the stool. ? A feeling of having more stool left after a bowel movement. Symptoms tend to come and go. They may be triggered by stress, mental health conditions, or certainfoods. How is this diagnosed? This condition may be diagnosed based on a physical exam, your medical history, and your symptoms. You may have tests, such as: ? Blood tests. ? Stool test. ? X-rays. ? CT scan. ? Colonoscopy. This is a procedure in which your GI tract is viewed with a long, thin, flexible tube. How is this treated? There is no cure for IBS, but treatment can help relieve symptoms. Treatment depends on the type ofIBS you have, and may include: ? Changes to your diet, such as: ? Avoiding foods that cause symptoms. ? Drinking more water. ? Following a low-FODMAP (fermentable oligosaccharides, disaccharides, monosaccharides, and polyols) diet for up to 6 weeks, or as told by your health care provider. FODMAPs are sugars that are hard for some people to digest. ? Eating more fiber. ? Eating medium-sized meals at the same times every day. ? Medicines. These may include: ? Fiber supplements, if you have constipation. ? Medicine to control diarrhea (antidiarrheal medicines). ? Medicine to help control muscle tightening (spasms) in your GI tract (antispasmodic medicines). ? Medicines to help with mental health conditions, such as antidepressants or tranquilizers. ? Talk therapy or counseling. ? Working with a diet and nutrition coordinator (dietitian) to help create a food plan that is right for you. ? Managing your stress. Follow these instructions at home: Eating and drinking ? Eat a healthy diet. ? Eat medium-sized meals at about the same time every day. Do not eat large meals. ? Gradually eat more fiber-rich foods. These include whole grains, fruits, and vegetables. This may be especially helpful if you have IBS with constipation. ? Eat a diet low in FODMAPs. ? Drink enough fluid to keep your urine pale yellow. ? Keep a journal of foods that seem to trigger symptoms. ? Avoid foods and drinks that: ? Contain added sugar. ? Make your symptoms worse. Dairy products, caffeinated drinks, and carbonated drinks can make symptoms worse for some people. General instructions ? Take shxl-fnd-ohshmzw and prescription medicines and supplements only as told by your health care provider. ? Get enough exercise. Do at least 150 minutes of moderate-intensity exercise each week. ? Manage your stress. Getting enough sleep and exercise can help you manage stress. ? Keep all follow-up visits as told by your health care provider and therapist. This is important. Alcohol Use ? Do not drink alcohol if: ? Your health care provider tells you not to drink. ? You are , may be , or are planning to become . ? If you drink alcohol, limit how much you have: ? 0???1 drink a day for women. ? 0???2 drinks a day for men. ? Be aware of how much alcohol is in your drink. In the [place] one drink equals one typical bottle of beer (12 oz), one-half glass of wine (5 oz), or one shot of hard liquor (1?? oz). Contact a health care provider if you have: ? Constant pain. ? Weight loss. ? Difficulty or pain when swallowing. ? Diarrhea that gets worse. Get help right away if you have: ? Severe abdominal pain. ? Fever. ? Diarrhea with symptoms of dehydration, such as dizziness or dry mouth. ? Bright red blood in your stool. ? Stool that is black and tarry. ? Abdominal swelling. ? Vomiting that does not stop. ? Blood in your vomit. Summary ? Irritable bowel syndrome (IBS) is not one specific disease. It is a group of symptoms that affects digestion. ? Your intestines may become more sensitive and overreact to certain things. This may be especially true when you eat certain foods or when you are under stress. ? There is no cure for IBS, but treatment can help relieve symptoms. This information is not intended to replace advice given to you by your health care provider. Make sure you discuss any questions you have with your health care provider. Document Revised: 07/06/2021 Document Reviewed: 07/06/2021 [employer] Patient Education ?? 2021 [employer] Colonoscopy, Adult, Care After This sheet gives you information about how to care for yourself after your procedure. Your health care provider may also give you more specific instructions. If you have problems or questions, contact your health care provider. What can I expect after the procedure? After the procedure, it is common to have: ? A small amount of blood in your stool for 24 hours after the procedure. ? Some gas. ? Mild cramping or bloating of your abdomen. Follow these instructions at home: Eating and drinking ? Drink enough fluid to keep your urine pale yellow. ? Follow instructions from your health care provider about eating or drinking restrictions. ? Resume your normal diet as instructed by your health care provider. Avoid heavy or fried foods thatare hard to digest. Activity ? Rest as told by your health care provider. ? Avoid sitting for a long time without moving. Get up to take short walks every 1???2 hours. This isimportant to improve blood flow and breathing. Ask for help if you feel weak or unsteady. ? Return to your normal activities as told by your health care provider. Ask your health care provider what activities are safe for you. Managing cramping and bloating ? Try walking around when you have cramps or feel bloated. ? Apply heat to your abdomen as told by your health care provider. Use the heat source that your health care provider recommends, such as a moist heat pack or a heating pad. ? Place a towel between your skin and the heat source. ? Leave the heat on for 20???30 minutes. ? Remove the heat if your skin turns bright red. This is especially important if you are unable to feel pain, heat, or cold. You may have a greater risk of getting burned. General instructions ? If you were given a sedative during the procedure, it can affect you for several hours. Do not drive or operate machinery until your health care provider says that it is safe. ? For the first 24 hours after the procedure: ? Do not sign important documents. ? Do not drink alcohol. ? Do your regular daily activities at a slower pace than normal. ? Eat soft foods that are easy to digest. ? Take ukky-tct-xwmtcyv and prescription medicines only as told by your health care provider. ? Keep all follow-up visits as told by your health care provider. This is important. Contact a health care provider if: ? You have blood in your stool 2???3 days after the procedure. Get help right away if you have: ? More than a small spotting of blood in your stool. ? Large blood clots in your stool. ? Swelling of your abdomen. ? Nausea or vomiting. ? A fever. ? Increasing pain in your abdomen that is not relieved with medicine. Summary ? After the procedure, it is common to have a small amount of blood in your stool. You may also have mild cramping and bloating of your abdomen. ? If you were given a sedative during the procedure, it can affect you for several hours. Do not drive or operate machinery until your health care provider says that it is safe. ? Get help right away if you have a lot of blood in your stool, nausea or vomiting, a fever, or increased pain in your abdomen. This information is not intended to replace advice given to you by your health care provider. Make sure you discuss any questions you have with your health care provider. Document Revised: 10/28/2020 Document Reviewed: 05/30/2020 [employer] Patient Education ?? 2021 [employer] Patient Name:KVNG FINE I have received this information and my questions have been answered. Patient/Registered Safety Engineer Name: Patient/Registered Safety Engineer Signature: Relationship to Patient: Witness Name/Signature: Date: Electronically Signed on: 11/28/2022 11:21 ESTSigned by: History and physical note * Jose Hernandez MD: PERFORM Event Display: History and Physical Authored Date: [id number] KVNG FINE :1990 Age:32 years Sex:Female Visit Date:11/28/2022 Primary Care Physician: Genet Aiken History of Present Illness 32-year-old female with lifelong abdominal pain and diarrhea.?? Reported black stools. Physical Exam Vitals & Measurements T:??37.1?C ??(Tympanic)?? HR:??67??(Monitored)?? RR:??16?? BP:??132/67(Line)?? SpO2:??100%?? WT:??105.23??kg?white female in no acute distress Lungs: Clear to auscultation bilaterally??heart: Regular rhythm S1-S2 ?? Abdomen: Soft nontender Assessment/Plan 1.??Chronic diarrhea??K52.9 Colonoscopy to exclude mucosal disease??such as colitis or celiac disease.?? I suspect her symptomsare??due to disordered gut brain interaction. 2.??Melena??K92.1 EGD to exclude bleeding lesion. 3.??Abdominal pain??R10.9 Orders: Urine Qual POCT, Urine, RT collect, Collected, 11/28/22 9:42:00 EST, Once L[facility]KENNETT Problem List/Past Medical History Ongoing Abdominal cramping Anxiety Bipolar 1 disorder, mixed Chronic diarrhea Daytime somnolence Depression Fatigue Knee pain Melena Morbid obesity Vitamin D deficiency Historical Loose stools Procedure/Surgical History ???Percutaneous nephrolithotomy???Surgical removal of wisdom tooth???Tonsillectomy Medications Inpatient Normal Saline Flush, 10 mL, IV Flush, As Directed, PRN Sodium Chloride 0.9% 1,000 mL, 1000 mL, IV Home NuvaRing 0.120 mg-0.015 mg/24 hours vaginal ring, 1 EA, VAG, every 4 wk Allergies No Known Allergies Social History Alcohol Current, 1-2 times per month Electronic Cigarette/Vaping Electronic Cigarette Use: Never. Tobacco Never tobacco user Tobacco Use:. Family History Family history is negative Electronically Signed on 11/28/22 10:31 AM Jose Hernandez MD Patient Care team information Personnel Name: Genet Aiken Address: Address: [address] [facility], [place] [address]
--- OUTSIDE RECORDS SUMMARY | 2023-02-19 13:29 | XMS_ITS | Continuity of Care Document ---
Author Name Unknown Organization [facility] Address [address] [place] [address] Care Team Providers Care Technical Service Engineer Name Role Phone Genet Aiken Primary Care Physician [phone] Encounter [facility] NBR [id number] Date(s): 10/25/22 - 10/25/22 [facility] [address] [place], [place] [address] Encounter Diagnosis Chronic diarrhea(Discharge Diagnosis) - 10/25/22 Melena(Discharge Diagnosis) - 10/25/22 Abdominal cramping(Discharge Diagnosis) - 10/25/22 Discharge Disposition: Home or Self Care Attending Physician: Dorita Youssef APRN Allergies, Adverse Reactions, Alerts No Known Allergies Assessment and Plan Future Appointments Functional Status 10/25/22 Other exposure to Infectious Disease Non e Medications NuvaRing 0.120 mg-0.015 mg/24 hours vaginal [...] Procedure Date Related Diagnosis Body Site Status Percutaneous nephrolithotomy Completed Surgical removal of wisdom tooth Completed Tonsillectomy Completed Vital Signs Most recent to oldest [Reference Range]: 1 Temperature Temporal Artery [36-38 Deg C ] 36.3 Deg C (10/25/22 1:53 PM) Peripheral Pulse Rate [60-100 bpm] 82 bp m (10/25/22 1:53 PM) Respiratory Rate [12-24 br/min] 20 br/mi n (10/25/22 1:53 PM) Blood Pressure [90-140/60-90 mmHg] 122/7 0mmHg (10/25/22 1:53 PM) Weight 103.2 kg (10/25/22 1:53 PM) Weight Measured (lbs) 227.517 lb (10/25/22 1:53 PM) [place] Body Weight Calculated 52.4 kg (10/25/22 1:53 PM) Height 160.02 cm (10/25/22 1:53 PM) Height/Length Measured (inches) 63 inch (10/25/22 1:53 PM) BSA Measured 2.14 m2 (10/25/22 1:53 PM) Body Mass Index 40.3 kg/m2 (10/25/22 1:53 PM) Social History Social History Type Response Tobacco Current everyday tob acco user Tobacco Use:. Sex Physician Outpatient Note * Dorita Youssef APRN: PERFORM Event Display: Office Clinic Note Physician Authored Date: [id number] KVNG FINE :1990 Age:32 years Sex:Female Visit Date:10/25/2022 Primary Care Physician: Genet Aiken Chief Complaint chronic diarrhea History of Present Illness Patient is a 32-year-old female here today with request??of Dr. Aiken??for??chronic diarrhea. ??This is an initial consult. ??She states??having diarrhea since age of 10. ??Denies any work-up.?? She was advised by her previous PCP??that this was normal.?? She reports having??a cramp on her left side intermittently.?? Denies any nausea or vomiting. ??Denies constipation.?? On a daily she will have 2 bowel movements that are [place] form 6-7 out of bed a as many as 10. ??Denies any nocturnal symptoms. ??Does??mention melena and mucus but denies any??use of iron or Pepto-Bismol.?? Denies hematochezia. ??Denies changes in weight or appetite. ??She avoids eating as it causes her to have diarrhea.?? She has fecal urgency without incontinence.?? Denies any pyrosis or dyspepsia.?? Denies dysphagiaor globus sensation. ?? States Imodium is working for a while but does not seem to be working any longer. ?? Does not use NSAIDS. ?? She still has her gallbladder. ?? 09/21/2022??complete metabolic panel,??CBC and ferritin were all normal. ?? Reports in [address] scan of the abdomen??at [facility]??with??bumps noted in her colon. ??A report is not available. ?? Denies a family history of gastrointestinal cancers or inflammatory bowel disease.?? Denies a family history of celiac disease. Review of Systems General: Denies malaise or fatigue. HEENT: Denies globus sensation or dysphagia. Respiratory: Denies shortness of breath, cough, or wheeze. Cardiovascular: Denies chest pain, palpitations, lightheadedness, dizziness, syncope or peripheral edema. ?? Abdomen:??Complains of left-sided cramping,??diarrhea,??melena or mucus in stools.?? Denies nausea,vomiting, constipation, changes in weight??or appetite. ??Denies any hematochezia,??pyrosis or dyspepsia. Skin: Denies rashes or lesions. Neurological: Denies any problems with gait or balance. Physical Exam Vitals & Measurements T:??36.3?C ??(Temporal Artery)?? HR:??82??(Peripheral)?? RR:??20?? BP:??122/70?? SpO2:??97%?? HT:??160.02??cm?? WT:??103.2??kg?? BMI:??40.3?? BSA:??2.14?? General: Well-nourished well-developed??overweight female??in no acute distress. HEENT: Head is normocephalic, [...] steady. Psychological: Pleasant, calm and cooperative. Assessment/Plan 1.??Chronic diarrhea??K52.9 Given patient's clinical symptoms of chronic diarrhea since the age of 10 and pain??raises the suspicion of IBS??however cannot??rule out colitis or neoplasm without colonoscopy.?? Less likely neoplasm given her age.?? She is having melena as well??without the use of??iron or Pepto-Bismol??suggesting an upper??GI source of bleeding. ??EGD to assess for mucosal injury, inflammation, H. pylori infection or celiac disease.?? She states she avoids NSAIDs.?? Recommend a high-fiber diet.?? If??testingis unremarkable??will discuss low FODMAP diet and use of neuromodulators??to control symptoms.?? Given her??behavioral health conditions??would likely defer that to her PCP??or functional [place] [facility]?? We will discuss this further??after the procedures??if needed. Ordered: Follow-up Appointment Request [email or web address]_OR, *Est. 11/08/22 +/- 2 days, Future Order, after Colonoscopy, In Approximately, [facility] Gastroenterology Surgical Procedure Booking Request LTTL, 10/25/22 14:20:00 EST, 11/28/22 10:00:00 EST, diarrhea andmelena, Chronic diarrhea Melena Abdominal cramping, Outpatient, EGD & Colonoscopy, Primary Procedure, 45, MAC, 40, [place], [id number], [id number], [id number], [id number], [id number], [id number], 43... ?? 2.??Melena??K92.1 As above. Ordered: Follow-up Appointment Request [email or web address]_OR, *Est. 11/08/22 +/- 2 days, Future Order, after Colonoscopy, In Approximately, [facility] Gastroenterology Surgical Procedure Booking Request LTTL, 10/25/22 14:20:00 EST, 11/28/22 10:00:00 EST, diarrhea andmelena, Chronic diarrhea Melena Abdominal cramping, Outpatient, EGD & Colonoscopy, Primary Procedure, 45, MAC, 40, [place], [id number], [id number], [id number], [id number], [id number], [id number], 43... ?? 3.??Abdominal cramping??R10.9 As above. Ordered: Follow-up Appointment Request [email or web address]_TREVOR, *Est. 11/08/22 +/- 2 days, Future Order, after Colonoscopy, In Approximately, [facility] Gastroenterology Surgical Procedure Booking Request LTTL, 10/25/22 14:20:00 EST, 11/28/22 10:00:00 EST, diarrhea andmelena, Chronic diarrhea Melena Abdominal cramping, Outpatient, EGD & Colonoscopy, Primary Procedure, 45, MAC, 40, [place], [id number], [id number], [id number], [id number], [id number], [id number], 43... ?? Problem List/Past Medical History Ongoing Abdominal cramping Anxiety Bipolar 1 disorder, mixed Chronic diarrhea Daytime somnolence Depression Fatigue Knee pain Melena Morbid obesity Vitamin D deficiency Historical Loose stools Renal stones Procedure/Surgical History ???Percutaneous nephrolithotomy???Surgical removal of wisdom tooth???Tonsillectomy Medications NuvaRing 0.120 mg-0.015 mg/24 hours vaginal ring, 1 EA, VAG, every 4 wk Allergies No Known Allergies Social History Alcohol Never Electronic Cigarette/Vaping Electronic Cigarette Use: Never. Tobacco Current everyday tobacco user Tobacco Use:. Family History Family history is negative Electronically Signed on 10/25/22 02:24 PM Dorita Youssef APRN Patient Care team information Personnel Name: Genet Aiken Address: Address: [address] [facility] [place] [address]
[2023-02-19 13:32] VITALS: PULSE 58; RESP 18; TEMP 37.2; O2SAT 98
[2023-02-19 13:34] VITALS: BP 139/82
--- NOTE | 2023-02-19 14:58 | W.ED.GENAD ---
Discharge Plan Disposition Patient Disposition: Home Condition: Stable Discharge Details Clinical Impression: Low back pain, Bilateral leg paresthesia Primary Care Provider: Rashmi Root ED Provider: Rebecca Siu Home Meds and New Rx's Prescriptions: New prednisone 20 mg tablet See Rx Instructions .ROUTE .COMPLEX Qty: 18 0RF Rx Instructions: Take 3 tabs daily for 3 days, then 2 tabs daily for 3 days, then 1 tab daily for 3 days. methocarbamol 500 mg tablet 500 mg PO Q6H PRN (Reason: muscle spasm) Qty: 14 0RF Continued etonogestrel-ethinyl estradiol [NuvaRing] 0.12-0.015 mg/24 hr ring 1 vag ring VG q month Qty: 3 3RF Discharge Instructions Instructions: Low Back Strain (ED), Acute Low Back Pain (ED) Additional Instructions: Your back pain may be secondary to a muscle strain. Other possibilities include sciatica which is an inflammation of a large nerve in your back or a disc herniation which is a pinched nerve. Alternate ice and heat to the affected area(s) several times daily for 20 minutes at a time. Alternate tylenol and motrin as needed and directed for pain. Prescriptions for steroids and muscle relaxers have been sent electronically to your pharmacy to take as directed. You have been placed on care management's list to arrange for a follow-up appointment with a primary care doctor within the next week for reevaluation and for referral for outpatient imaging such as MRI of your lumbar spine if her symptoms do not improve or worsen. Return immediately to the emergency department if you develop any worsening or concerning symptoms such as worsening pain, loss of bowel or bladder function inability to ambulate or any other concerns. Stand Alone Forms: Work Release Discharge Data Discharge Physician: Rebecca Siu Medical Decision Making 32-year-old female presents with midline lower back pain with radiation of pain into her buttocks and thighs bilaterally in addition to paresthesias in her bilateral legs extending to her toes bilaterally. She also endorses tingling in her left hand but denies any neck pain. No cauda equina symptoms. Patient appears slightly uncomfortable but nontoxic. She is laying supine on the stretcher. She is able to get up from the stretcher on her own and ambulate fairly well. She does have tenderness to palpation of her midline lumbar and bilateral paraspinal lumbar region. She has fairly good range of motion of her lower back. She has grossly diminished sensation to her right lower extremity with light touch but otherwise muscle strength and reflexes intact bilateral lower extremities. She has normal strength bilateral upper extremities. Her bilateral upper and lower extremity distal pulses are intact. Skin appears normal to inspection and extremities. History and presentation does not appear consistent with cauda equina syndrome, gastrointestinal or genitourinary etiology. Do not suspect fracture as there is no report of injury. Differential diagnosis includes lumbar strain, sciatica or possibly disc herniation. Discussed with patient I do not see an indication for x-ray as this will be low yield and fracture appears unlikely. Discussed that I do not see an indication for emergent MRI as she has no cauda equina symptoms or focal deficits with reassuring neurological exam. Also discussed the possibility obtaining a CT for assessment of her spine but discussed that this is high radiation and a reassuring exam and patient would prefer to hold on CT imaging at this time. She is requesting a work note. We will give a dose of IM Toradol and p.o. prednisone. We will treat with a short course of steroids and muscle relaxers. She is advised alternate Tylenol and Motrin, ice and heat. Prescriptions for steroids and muscle relaxer sent electronically to her pharmacy. She was placed on care management's list to arrange for [facility] for reevaluation and for referral for outpatient imaging such as MRI if indicated or physical therapy if symptoms do not improve or worsen. Usual and customary return precautions given prior to discharge. Medical Records Medical records reviewed: Yes I reviewed the patient's medical records. HPI General Mode of arrival: ambulatory. Date/Time Provider Initiated Documentation: 02/19/23 13:22. Limitations to Documentation: no limitations. Information obtained by: patient. HPI Narrative: Patient is a 32-year-old female who presents with midline lower back pain with radiation pain into both legs and associated with decreased sensation in her thighs for the past 2 days. She states she did not awake with the pain 2 days ago but noticed the pain throughout the day. She denies any known injury. 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 She states the pain is worse with sitting, standing and walking. She took Tylenol earlier for pain without relief. She denies any fever, abdominal pain, urinary symptoms, bowel or bladder incontinence. She is also endorsing tingling in her left hand and intermittent pain extending up her left arm but denies any neck pain or injury or right arm paresthesias or pain. Related Data Home Medications Medication Instructions Recorded Confirmed etonogestrel 0.12 mg-ethinyl 1 vag ring vaginal q month #3 ea 11/25/18 02/19/23 estradiol 0.015 mg/24 hr vaginal ring (NuvaRing) methocarbamol 500 mg tablet 500 mg PO Q6H PRN muscle spasm #14 02/19/23 tabs prednisone 20 mg tablet See Rx Instructions .Route 02/19/23 .COMPLEX #18 tabs Previous Rx's Medication Instructions Recorded etonogestrel 0.12 mg-ethinyl 1 vag ring vaginal q month #3 ea 11/25/18 estradiol 0.015 mg/24 hr vaginal ring (NuvaRing) methocarbamol 500 mg tablet 500 mg PO Q6H PRN muscle spasm #14 02/19/23 tabs prednisone 20 mg tablet See Rx Instructions .Route 02/19/23 .COMPLEX #18 tabs Allergies Allergy/AdvReac Type Severity Reaction Status Date / Time No Known Drug Allergies Allergy Verified 02/19/23 13:34 General Stated Complaint: Nk/Back Pain HAM: 3 Review of Systems All systems reviewed & are unremarkable except as noted in HPI and below Constitutional Constitutional: Reports as per HPI, Denies chills and Denies fever(s) Eyes Eyes: Denies blurry vision ENT Ears, Nose, Mouth, and Throat: Denies dizziness, Denies sore throat and Denies throat swelling Cardiovascular Cardiovascular: Denies chest pain and Denies dyspnea Respiratory Respiratory: Denies cough and Denies dyspnea Gastrointestinal Gastrointestinal: Denies abdominal pain, Denies diarrhea and Denies vomiting Genitourinary Genitourinary: Denies hematuria and Denies dysuria Musculoskeletal Musculoskeletal: Reports back pain and Reports numbness Integumentary/Breasts Skin/Breast: Denies lesions and Denies rash Neurologic Neurologic: Denies dizziness, Denies localized weakness and Reports numbness Allergic/Immunologic Allergic/Immunologic: Denies throat swelling PFSH All Active Problems Left wrist sprain (Acute) Pharyngitis (Acute) Low back pain (Acute) Bilateral leg paresthesia (Acute) Contraception (Acute) Depression with anxiety (Acute) Smoker (Acute 05/28/14) 2 cpd (01/27/15) quit 03/2014 Medical History (Updated 02/19/23 @ 15:41 by Rebecca Siu DO) Irregular bleeding Kidney stones (11/04/15) Surgical removal and stent placement Surgical History stent placement left kidney and ureter Ureteroscopy, EHL, or Laser Lithotripsy Family History Mother Alcohol abuse Father Substance abuse marijuana now Alcohol abuse Brother No problems noted. Brother No problems noted. Brother No problems noted. Grandfather No problems noted. Grandfather No problems noted. Grandmother Diabetes Alcohol abuse Essential hypertension Heart disease Hyperlipidemia Mental disorder depression and anxiety Myocardial infarction Grandmother Kidney stones Cholestasis Son No problems noted. 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 Do you feel safe at home: Yes Do you feel safe in your relationship?: Yes Female Reproductive History Menstrual control method: vaginal ring History History 2 Para 2 Hx # Term Pregnancies Multiple births Hx # Pregnancies Ectopic pregnancies AB induced Hx Number of Living Children AB spontaneous Exam Const General: cooperative, healthy appearing and no acute distress HENMT Head: normal to inspection Face and sinus: normal facial exam Eyes General: appearance normal, both eyes and all related structures Pupils: PERRL EOM: EOM intact bilaterally Neck Neck: normal visual inspection and No submandibular swelling Lymphatic: no lymphadenopathy noted Chest Chest: normal inspection of the chest and no tenderness Resp Effort & Inspection: normal respiratory effort and able to speak in complete sentences Auscultation: clear to auscultation bilaterally Cardio Rate: regular rate Rhythm: regular rhythm GI Inspection: normal to inspection Palpation: soft, not firm, not rigid and nontender Auscultation: normal bowel sounds Back/Spine/Pelvis Thoracic/Lumbar Spine: thoracic and lumbar spine normal to inspection, paraspinal tenderness (bilateral lumbar) and lumbar spinal tenderness Skin General skin exam: no rashes or lesions noted Neuro General: patient alert, patient awake and patient oriented x3 Cognition: normal cognition Speech: speech normal Gait: normal gait Motor: muscle tone normal throughout and strength 5/5 throughout DTR's: Rt Patellar: 1+, Lt Patellar: 1+, Rt Ankle: 1+ and Lt Ankle: 1+ Plantar Reflexes: Equivocal: bilateral (negative babinski b/l ) Other: Diminished sensation to light touch along the right leg in comparison to the left leg. Extrem General: normal to inspection, full ROM, capillary refill normal, no calf tenderness bilaterally and no edema Other: B/L DP/PT pulses intact Psych Appearance: grossly normal Mental Status: mental status grossly normal Speech and Movement: speech and movement normal Affect: normal affect Course Vital Signs Vital signs: Vital Signs Temperature 99.0 F 02/19/23 13:32 Pulse 58 L 02/19/23 13:32 Respiratory Rate 18 02/19/23 13:32 Pulse Oximetry 98 02/19/23 13:32 Temperature 99.0 F 02/19/23 13:32 Temperature Source Oral 02/19/23 13:32 Pulse 58 L 02/19/23 13:32 Respiratory Rate 18 02/19/23 13:32 Respiratory Effort Normal, Non-Labored 02/19/23 13:33 Blood Pressure 139/82 02/19/23 13:34 Pulse Oximetry 98 02/19/23 13:32 Oxygen Delivery Method Room Air 02/19/23 13:32 Oxygen Flow Rate 0 02/19/23 13:32 Pain Level 8 02/19/23 14:27 Lab/Test Results Lab/Test Results: POC- Test(urine) Negative
[2023-02-19] MEDS: predniSONE 20 MG TAB 60 MG PO (15:12)
[2023-02-19] MEDS: Ketorolac 60 MG/2 ML VIAL IM (15:12)
[2023-02-19 16:06] VITALS: BP 129/79; PULSE 58; RESP 16; TEMP 36; O2SAT 98
== END 2023-02-19 16:08 | disposition home or self-care (01) ==
PROVIDERS: Emergency Provider Physician Assistant; PCP Nurse Practitioner Family
DX: M54.50 Low back pain, unspecified (principal); R20.2 Paresthesia of skin
CPT/HCPCS: 81025; 96372; 99284; J1885; J7512

== ENCOUNTER 2023-08-14 15:18 | Outpatient (REF) | payer MEDICAID, SELFPAY ==
[2023-08-14 15:52] LABS: Source Nasal/Nares
[2023-08-14 16:11] LABS: COVID-19 PCR Negative (Negative)
== END 2023-08-14 15:19 | disposition home or self-care (01) ==
LOC: LBN 15:18
PROVIDERS: PCP Nurse Practitioner Family; Visit Provider Physician Assistant Medical
DX: J11.1 Influenza due to unidentified influenza virus with other respiratory manifestations (principal); Z20.822 Contact with and (suspected) exposure to COVID-19
CPT/HCPCS: 87635; 87070

== ENCOUNTER 2023-10-24 22:39 | Outpatient (REF) | payer MEDICAID, SELFPAY ==
[2023-10-24 21:16] LABS: Source Nasal/Nares
[2023-10-24 21:56] LABS: COVID-19 PCR Negative (Negative)
== END 2023-10-24 22:40 | disposition home or self-care (01) ==
LOC: LBN 22:39
PROVIDERS: PCP Nurse Practitioner Family; Visit Provider Nurse Practitioner Family
DX: J02.9 Acute pharyngitis, unspecified (principal)
CPT/HCPCS: 87635; 87070

== ENCOUNTER 2023-12-24 13:54 | Outpatient (REF) | payer MEDICAID, SELFPAY ==
[2023-12-24 16:02] LABS: COVID-19 PCR Negative (Negative)
[2023-12-24 16:05] LABS: Source Nasal/Nares
== END 2023-12-24 13:55 | disposition home or self-care (01) ==
LOC: LBN 13:54
PROVIDERS: PCP Nurse Practitioner Family; Visit Provider Nurse Practitioner Family
DX: J02.9 Acute pharyngitis, unspecified (principal); Z20.822 Contact with and (suspected) exposure to COVID-19; R09.81 Nasal congestion
CPT/HCPCS: 87635; 87070